=== PATIENT | male | born 1950 | race Caucasian/White ===

== ENCOUNTER 2017-03-01 18:08 | Inpatient (IN) | payer OTHER, MEDICAID ==
--- NOTE | 2017-03-01 18:45 | CPEKG ---
Heart Rate: 111 RR Interval: 541 P-R Interval: 164 QRSD Interval: 78 QT Interval: 324 QTC Interval: 441 P Egnar: 90 QRS Egnar: 79 EKG Severity - ABNORMAL ECG - EKG Impression: SINUS TACHYCARDIA EKG Impression: Artifact present Electronically Signed By: Frances Hernández 01-Mar-2017 21:30:42
--- NOTE | 2017-03-01 18:59 | EDPHY ---
H & P HPI/ROS: CHIEF COMPLAINT: Possible seizure HISTORY OF PRESENT ILLNESS: This patient is a 66 year old male with advanced Parkinson's disease arriving today via EMS following a reported possible seizure this evening shortly prior to arrival. EMS reports that an aide at [facility] saw the patient shaking for "maybe six seconds", and then he became unresponsive. The patient's blood glucose level on scene was 154. The patient's daughter at bedside states he is usually alert and conversive, and walks with a walker. She denies history of seizure or stroke. The patient is currently moaning and able to respond to some commands, and is beginning to move his extremities. Tachycardic 127. BP 166/119 . Further HPI unobtainable at this time. REVIEW OF SYSTEMS: Unable to assess due to patient presentation Past Medical/Surgical History: Pulmonary embolism, Parkinson's disease Social History: Lives at [facility]. Daughter and family at bedside. Smoking Status: Never smoked Physical Exam: General Appearance: Alert, nonverbal Eyes: Pupils equal and round, blinking left eye, no blinking with the right eye ENT, Mouth: Mucous membranes dry Neck: Normal inspection Respiratory: Lungs are clear to auscultation anteriorly Cardiovascular: Regular rate and rhythm Gastrointestinal: Abdomen is soft and nontender Neurological: alert, nonverbal, youth director both hands equally, not moving lower extremities to command Skin: Warm and dry Extremities: no swelling Psychiatric: unable to determine Constitutional: Initial Vital Signs Temperature (C) 36.7 C 03/01/17 18:34 Heart Rate 123 H 03/01/17 18:34 Respiratory Rate 22 H 03/01/17 18:34 Blood Pressure 178/100 H 03/01/17 18:34 O2 Sat (%) 94 03/01/17 18:34 O2 Delivery Mode Nasal Cannula O2 (L/minute) 2 Allergies/Adverse Reactions: No Known Allergies Allergy (Verified 03/01/17 20:08) Home Medications: Medication Instructions Recorded Carbidopa/Levodopa 25/100Mg 2 tab PO QID 12/24/14 [Sinemet 25/100 MG (*)] [place]-3 Fatty Acids [Fish Oil 1000 1,000 mg PO DAILY 12/24/14 mg (*)] Sennosides/Docusate Sodium 1 - 2 tab PO BID #0 tab 03/20/15 [Senokot-S] Acetaminophen [Tylenol 325mg (*)] 650 mg PO Q4 PRN 03/01/17 Bisacodyl [Dulcolax] 10 mg RC DAILY PRN 03/01/17 Fludrocortisone Acetate [Florinef] 0.1 mg PO BID 03/01/17 guaiFENesin/DEXTROMETHORPHAN 10 ml PO Q6 PRN 03/01/17 [Robitussin Dm Oral Liquid (*)] Docusate Sodium [Colace] 100 mg PO Q2D #30 capsule 03/03/17 Medical Decision Making - Diagnostics EKG Interpretation: EKG interpreted by me reveals sinus tachycardia rate 111, significant artifact present from neurostimulator, no ST or T segment changes. Impression: Abnormal EKG Imaging Results: Head CT 03/01/17 18:15 Impression: No acute intercranial hemorrhage, subdural hematoma, or evidence of cortical ischemia. Chest X-Ray 03/01/17 18:22 Impression: Clear lungs. No pneumonia or evidence of aspiration. Imaging: Discussed imaging studies w/ call center rn Radiologist ED Course/Re-evaluation: 18:10 Met EMS at bedside. Clinical presentation consistent with new onset seizure. Query CVA/ICH. He is able to business controller my fingers with both hands equally. He is not moving his legs. 18:15 Daughter at bedside. Patient usually is able to talk and he is able to walk using a walker. He has never had a seizure. She is unsure whether he is on a blood thinner or not. BP elevated, will obs for now. Plan to order CT, EKG labs including CBC, BMP, Troponin, coag. 19:00 I reassessed this patient. He is able to business controller with both hands. He is also moving both of his legs. According to the family, he has answered yes no questioning and has been humming a song. His mental status seems more appropriate at this point to them, though he is not back to his baseline. c/w postictal period. 19:30 Patient remains hypertensive and tachycardic. Labetalol 10 mg IV given. BP improved after IV Labetalol. Pt still not at baseline neuro status. Will admit for obs/further evaluation. No evidence for CVA/TIA. 19:36 consulted with hospitalist service. Dr. Castanon accepts admission for new onset seizure. Differential Diagnosis: Altered mental status including but not limited to hypoglycemia, infectious process, electrolyte abnormality, head injury and intoxicants. - Data Points Laboratory Results: Laboratory Results 03/01/17 19:19 03/01/17 18:21 Medications Given: Discontinued Medications Sodium Chloride (Ns) 1,000 mls @ 125 mls/hr IV CONT JENNY Stop: 03/02/17 04:44 Last Admin: 03/01/17 21:21 Dose: 1,000 mls Labetalol HCl (Labetalol Hcl) 10 mg IVP EDNOW ONE Stop: 03/01/17 19:35 Last Admin: 03/01/17 20:05 Dose: 10 mg Departure - Departure Disposition: [facility] Inpatient Acute Clinical Impression: New onset seizure, Parkinsons disease Condition: Fair Report Scribed for: Frances Hernández Report Scribed by: Theresa Aguirre Date of Report: 03/01/17 Time of Report: 19:01 Physician Review and Approval Statement: 03/01/17 19:02 Portions of this note were transcribed by a medical transcription supervisor. I personally performed a history, physical exam, medical decision making, and confirmed accuracy of information the transcribed note.
[2017-03-01 19:16] LABS: ADD DIFF? NO; ADD MORPH? NO; ADD SCAN? NO; ATYPICAL LYMPHOCYTE FLAG 0 (0-99); FRAGMENT RBC FLAG 0 (0-99); LEFT SHIFT FLG 0 (0-99); LIPEMIA HEMOLYSIS FLAG 0 (0-99); PLATELET CLUMPS FLAG 0 (0-99)
[2017-03-01 19:18] LABS: ANION GAP 24 mEq/L (8-16); CALCIUM 10.2 mg/dL (8.5-10.4); CARBON DIOXIDE 15 mEq/l (22-31); CHLORIDE 107 mEq/L (97-110); CREATININE 0.8 mg/dL (0.7-1.3); GLOMERULAR FILTRATION RATE > 60; GLUCOSE 147 mg/dL (70-100); POTASSIUM 3.8 mEq/L (3.5-5.2); SODIUM 146 mEq/L (134-144)
[2017-03-01 19:19] LABS: INR 1.07 (0.83-1.16); PROTIME(PATIENT) 13.8 SEC (12.0-15.0)
[2017-03-01 19:30] LABS: TROPONIN I 0.013 ng/mL (0-0.034)
[2017-03-01] MEDS ORDERED: LABETALOL HCL 50 MG/10 ML SYR IVP ONE (19:34)
[2017-03-01 19:46] LABS: % IMMATURE GRANULYOCYTES 1.6 % (0.0-1.1); ABSOLUTE IMMATURE GRANULOCYTES 0.24 10^3/uL (0.00-0.10); ADD DIFF? NO; ADD MORPH? NO; ADD SCAN? NO; ATYPICAL LYMPHOCYTE FLAG 0 (0-99); FRAGMENT RBC FLAG 0 (0-99); HEMATOCRIT 47.1 % (40.0-51.0); HEMOGLOBIN 16.3 g/dL (13.7-17.5); LEFT SHIFT FLG 10 (0-99); LIPEMIA HEMOLYSIS FLAG 90 (0-99); MEAN CELL HEMOGLOBIN CONCENTR. 34.6 g/dL (32.4-36.7); MEAN CELL VOLUME 89.7 fL (81.5-99.8); MEAN PLATELET VOLUME 9.7 fL (8.7-11.7); PLATELET CLUMPS FLAG 0 (0-99); PLATELET COUNT 244 10^3/uL (150-400); RED BLOOD CELL COUNT 5.25 10^6/uL (4.40-6.38); RED CELL DISTRIBUTION WIDTH 12.5 % (11.5-15.2)
[2017-03-01] MEDS ORDERED: ACETAMINOPHEN 325 MG TAB PO PRN ×2 (20:31→20:34)
[2017-03-01] MEDS ORDERED: GUAIFENESIN/DM 10 ML UDCUP PO PRN (20:31)
[2017-03-01] MEDS ORDERED: BISACODYL 10 MG SUPP PR PRN (20:31)
[2017-03-01] MEDS ORDERED: ONDANSETRON 4 MG/2 ML VIAL IVP PRN (20:34)
[2017-03-01] MEDS ORDERED: ONDANSETRON DISINTEGRATING 4 MG TAB PO PRN (20:34)
[2017-03-01] MEDS ORDERED: NS 1,000 ML IV SCH (20:45)
[2017-03-01] MEDS: SENNOSIDES/DOCUSATE SODIUM TAB PO SCH (21:21)
[2017-03-01] MEDS: FLUDROCORTISONE ACETATE 0.1 MG TAB PO SCH (21:21)
[2017-03-01] MEDS: CARBIDOPA/LEVODOPA 25 MG/100 MG TAB PO SCH (21:21)
--- NOTE | 2017-03-01 21:41 | GHP ---
[f rep st] HISTORY AND PHYSICAL DATE OF ADMISSION: 03/01/2017 HISTORY OF PRESENT ILLNESS: The is a 66-year-old gentleman with a history of Parkinson's disease an d pulmonary embolism, no longer on anticoagulation, who presents to the hospital with what appears t o be seizure. It sounds like he lives at [facility], and he had witnessed tonic-colonic movements, and he was subsequently less arousable, less interactive than his baseline following the resolution of that. The pseudoseizure was not witnessed by any healthcare professionals at [facility]. His daughter is present at the bedside, and states normally he is able to follow commands, to be conversant, and move around. When I see him today, he is able to answer a few questions with yes or no, but he is pretty rigid. He is not really moving. He was recently started on donepezil. He has a deep brain stimulator that was placed in 2004. He d enies any pain around it. There is no warmth or redness around it. He does not have a history of s eizures. There is no history of trauma, although he does have falls. He has no evidence of trauma to his head. No fever, chills, cough, sputum, nausea, vomiting, diarrhea, urgency, frequency, dysur ia. REVIEW OF SYSTEMS: Complete 10-point review of systems conducted, negative except as noted in the H PI. PAST MEDICAL HISTORY: 1. Parkinson's diagnosed in early 1999 with deep brain stimulator, requires inpatient care. 2. History of pulmonary embolism August 2015. No longer on blood thinners, secondary to falls. 3. History of constipation. 4. Orthostatic hypotension, resolved with Florinef. 5. Constipation. ALLERGIES: No known drug allergies. MEDICATIONS: Tylenol, bisacodyl, carbidopa levodopa, donepezil, fludrocortisone, guaifenesin, dextr omethorphan, fish oil, and senna. SOCIAL HISTORY: Daughter present at the bedside. He is a . He lives in [facility]. FAMILY HISTORY: Daughter is healthy. PHYSICAL EXAM: VITAL SIGNS: Temp 36.7, blood pressure 178/100, now 159/107. He was initially tach ycardic at 120, now in the 90s, breathing 16 times a minute, 96% on 2 L. GENERAL: In no acute dist ress, thin. HEENT: Sclerae anicteric. Oropharynx clear. Mucous membranes are moist. NECK: Esse ntially supple. He is not able to move it on his own. When I move it, he does not wince in pain. HEART: S1, S2 without tachycardia. CHEST: His deep brain stimulator is clean dry and intact. The re is no fluctuance or erythema. The catheter has no fluctuance, or erythema over it. ABDOMEN: So ft, nontender, nondistended. LOWER EXTREMITIES: Without edema. Calves nontender. SKIN: Without rash. NEUROLOGIC: The patient is really not following commands for me, but per his daughter he was following them earlier, and is otherwise nonfocal. He does have a resting tremor consistent with P madeleinekinsjaylen's. LABS: White count 15.2, hematocrit 47, platelets are 244,000. Coags normal. Sodium 146, potassium 3.8, chloride 105, bicarb 15, BUN 17, creatinine 0.8, glucose 147, troponin 0.013. He has an eleva dolores anion gap of 24. Chest x-ray, interpreted by me, shows no acute cardiopulmonary disease. There is a deep brain stimu lator in place. EKG, interpreted by me, shows a lot of artifact, sinus tachycardia. No ST or T-wave changes. Noncontrast head CT shows no acute intracranial hemorrhage, subdural hematoma, or evidence of cortic al ischemia. Discussed the case with Dr. Aleja Hernández. ASSESSMENT/PLAN: This is a 66-year-old today with Parkinson's, here with new seizures. 1. Seizure. This appears to be a new seizure on the basis of his metabolic acidosis in the story maverick huertas. Certainly this could be a result of his Parkinson's, although typically it is not related. His deep brain stimulator appears to be intact. I am not sure if this can be interrogated. At th is point in time, I will hold on an antiepileptic drug, and order an EEG and a neurology consult for tomorrow. 2. Question meningitis. I do not believe this patient has meningitis. He has no white count, no f ever. His neck does not appear stiff. He does not appear toxic, so we will hold on lumbar puncture for now. 3. History of pulmonary embolism. It is mild. We will follow. 4. Hyponatremia. Again, mild, will follow. 5. Anion gap metabolic acidosis secondary to seizure activity. 6. Prophylaxis. Pharmacologic prophylaxis indicated. Start low-molecular heparin at 40. /[id number]/MODL
[2017-03-02 05:22] LABS: % IMMATURE GRANULYOCYTES 0.5 % (0.0-1.1); ABSOLUTE IMMATURE GRANULOCYTES 0.06 10^3/uL (0.00-0.10); ADD DIFF? NO; ADD MORPH? NO; ADD SCAN? NO; ATYPICAL LYMPHOCYTE FLAG 0 (0-99); FRAGMENT RBC FLAG 0 (0-99); HEMATOCRIT 44.6 % (40.0-51.0); HEMOGLOBIN 15.2 g/dL (13.7-17.5); LEFT SHIFT FLG 0 (0-99); LIPEMIA HEMOLYSIS FLAG 90 (0-99); MEAN CELL HEMOGLOBIN 30.9 pg (27.9-34.1); MEAN CELL HEMOGLOBIN CONCENTR. 34.1 g/dL (32.4-36.7); MEAN CELL VOLUME 90.7 fL (81.5-99.8); PLATELET CLUMPS FLAG 0 (0-99); PLATELET COUNT 213 10^3/uL (150-400); RED BLOOD CELL COUNT 4.92 10^6/uL (4.40-6.38); RED CELL DISTRIBUTION WIDTH 12.7 % (11.5-15.2)
[2017-03-02 05:44] LABS: ANION GAP 13 mEq/L (8-16); CALCIUM 9.7 mg/dL (8.5-10.4); CARBON DIOXIDE 22 mEq/l (22-31); CHLORIDE 109 mEq/L (97-110); CREATININE 0.8 mg/dL (0.7-1.3); GLOMERULAR FILTRATION RATE > 60; GLUCOSE 119 mg/dL (70-100); POTASSIUM 3.8 mEq/L (3.5-5.2); SODIUM 144 mEq/L (134-144)
[2017-03-02] MEDS: CARBIDOPA/LEVODOPA 25 MG/100 MG TAB PO SCH ×4 (07:21→21:28)
[2017-03-02] MEDS: ENOXAPARIN 40 MG/0.4 ML SYR SC SCH (09:02)
[2017-03-02] MEDS: OMEGA-3 FATTY ACIDS 1,000 MG CAP PO SCH (09:02)
[2017-03-02] MEDS: DONEPEZIL HCL 5 MG TAB PO SCH (09:02)
[2017-03-02] MEDS: FLUDROCORTISONE ACETATE 0.1 MG TAB PO SCH ×2 (09:02→21:28)
[2017-03-02] MEDS: SENNOSIDES/DOCUSATE SODIUM TAB PO SCH ×2 (10:55→21:28)
--- NOTE | 2017-03-02 13:13 | HOSPPROG ---
Hospitalist Progress Note Assessment/Plan: 66y male with abnormal behavior. This is my first encounter, chart reviewed. #Possible SZ await neurology eval #Hx Parkinsons neuro consult brain stimulator #Hx constipation cont therapy check KUB #Hypernatremia resolved #AGMA resolved #Hx of PE no signs of concern #Dispo likely 1-2 days return home await neurology consult Subjective: Feeling better. Still feeling tired. Objective: Vital Signs Temp Pulse Resp BP Pulse Ox 36.7 C 71 16 138/92 H 92 03/02/17 11:35 03/02/17 11:35 03/02/17 11:35 03/02/17 11:35 03/02/17 11:35 Laboratory Results 03/02/17 04:10 03/02/17 04:10 03/01/17 03/02/17 03/03/17 05:59 05:59 05:59 Output Total 350 Balance -350 PT 13.8 SEC (12.0-15.0) 03/01/17 18:21 INR 1.07 (0.83-1.16) 03/01/17 18:21 - Physical Exam Constitutional: not in pain, chronically ill appearing, uncomfortable Eyes: PERRL, anicteric sclera, EOMI Ears, Nose, Mouth, Throat: moist mucous membranes, hearing normal, ears appear normal Cardiovascular: regular rate and rhythym, No JVD, No edema Respiratory: no respiratory distress, no rales or rhonchi, No reduced air movement Gastrointestinal: normoactive bowel sounds, No tenderness, No ascites Skin: warm, normal color, No erythema Musculoskeletal: pain with ROM, muscular tenderness, generalized weakness Neurologic: AAOx3 Psychiatric: interacting appropriately, not anxious, not encephalopathic, poor insight ICD10 Worksheet Patient Problems: Problems Problem Status Onset Gait instability Acute Pulmonary embolism Acute Impaction of colon Acute
--- NOTE | 2017-03-02 13:54 | PDCONSULT ---
[employer] Solution [employer] Note: HOSPITAL NEUROLOGY CONSULT REQUESTING: Miguel Angel Castanon MD REASON: seizure HPI: This is a 66 year old man with a history of advanced idiopathic Parkinson disease with bilateral DBS implants who presented to our facility yesterday with a witnessed convulsion. He resides at [facility]. Reports indicate the patient had a witnessed convulsion lasting about 6 seconds with some post-ictal confusion. He has not been ill recently, though, complained of some vague abdominal pain earlier. Patient has no recollection of the events. His ED evaluation indicated laboratory epiphenomenon of seizure , including leukocytosis and metabolic acidosis which are resolving without intervention. With regards to epilepsy risk factors, he has intracranial instrumentation in the form of DBS implants, but has no history of TBI, TESTING PROJECTS ADMINISTRATOR infection, collagen vascular disease. No prior history of seizures. Today he is feeling generally weak. No new focal deficits have been observed. He denies BARTON, feeling feverish or chilled. ROS: As per the HPI, otherwise a complete 12 point ROS was performed and is negative ALLERGIES AND MEDS: As recorded in the EMR - reviewed and reconciled PFSH: As per the intake H&P by Dr. Castanon from yesterday EXAM: VS reviewed in EMR GEN: thin elderly gentleman laying in NAD HEENT: NCAT, sclera anicteric, conjunctiva not injected, MMM, oropharynx clear, no scalp tenderness, no tongue laceration observed NECK: supple, nontender, no meningismus CV: RRR s1 s2 wo m/r/c/g. Carotid pulses 2+ wo bruit NEURO: MS: awake, reduced attention, oriented to self, place, but not date or events. He is markedly hypomimetic and bradyphrenic. Speech nondysarthric. No language disturbance. Follows commands. Attends to both sides. Episodic memory grossly impaired on casual conversation. Mood seems depressed. Adequate fund of knowledge. CN: pupils 4mm round and reactive. Intolerant of fundoscopy. VFF. Primary gaze centered. Square wave jerks present. Vertical gaze limited, but otherwise full horizontal ocular motility. Smooth pursuit with saccadic intrusions and motor impersistence. Facial sensation preserved. Face symmetric. Hearing grossly intact to finger rub. Palatoglossal movements intact. Shoulder shrug and head turn strong. MOTOR: no tremors/adventitial movements noted. Cogwheeling symmetrically about the wrists and elbows at 3+. Full power in the BUEs. Hip flexion weak at 4/5, but otherwise BLEs full power. SENSORY: intact to LT/PP throughout and symmetric. No extinction. COORD: no ataxia FN/HS. Abdifatah bradykinetic at -3. REFLEX: plantars down. No clonus. Absent ankle jerks. Other DTRS 2/4. GAIT: deferred to PT safety eval DATA REVIEW: Labs reviewed in EMR PERSONALLY INTERPRETED RESULTS AND DATA: CT head wo - global volume loss, bilateral DBS leads coursing through bilateral frontal demetrice holes and terminating in the STN region. Some hypoattenuation in the subcortical white matter, likely reflective of chronic microvascular ischemic change. Nothing acute. IMPRESSION AND RECOMMENDATIONS: // SEIZURE // PARKINSON DISEASE Patient with a witnessed convulsion and laboratory epiphenomenon supportive of this event. He does have a neurodegenerative condition, which increases his chance of seizure, as does his history of intracranial instrumentation (though to a much lesser degree with DBS). Toxic/metabolic/infectious workup with the hospitalist team has been negative to date. He is on medications that can lower seizure threshold and/or provoke seizures. These are namely donepezil, fludrocortisone and dextromethorphan. Would recommend discontinuing these medications. Donepezil's main goal of therapy is to stave off intermediate placement, and since he is already in a SNF, I don't think this therapy has much to offer anyway. Daughter indicates he has been having hallucinations and delusions, which can be treated with donepezil, but he will need an alternate therapy for this, like low dose quetiapine. Not sure of the indication for fludrocortisone, but if any orthostatic intolerance is evident, it may be potentiated by his L-dopa therapy. He certainly could be trialed on an alternate therapy, but this would be deferred to the outpatient setting. His symptoms do seem to be later stage (Roya-Yahr 4 at least) - his daughter confirms he is minimally ambulatory and has frequent falls. Would ensure Sinemet is being administered on an empty stomach, as protein will bind the medicine resulting in malabsorption. Would continue to exercise seizure safety precautions. If another seizure manifests, despite discontinuation of medication, would initiate levetiracetam 250mg BID. I would be happy to see him in my movement disorders clinic after discharge if desired. Overall, he needs close followup in the outpatient setting for further medication adjustment and optimization. No further recommendations.
[2017-03-02 23:19] VITALS: O2SAT 90
[2017-03-03] MEDS: CARBIDOPA/LEVODOPA 25 MG/100 MG TAB PO SCH ×2 (05:24→12:56)
[2017-03-03 07:22] VITALS: BP 117/78; PULSE 66; RESP 12; TEMP 97.9
[2017-03-03] MEDS: OMEGA-3 FATTY ACIDS 1,000 MG CAP PO SCH (10:25)
[2017-03-03] MEDS: FLUDROCORTISONE ACETATE 0.1 MG TAB PO SCH (10:26)
[2017-03-03] MEDS: SENNOSIDES/DOCUSATE SODIUM TAB PO SCH (10:28)
[2017-03-03] MEDS: ENOXAPARIN 40 MG/0.4 ML SYR SC SCH (10:31)
[2017-03-03] MEDS: DONEPEZIL HCL 5 MG TAB PO SCH ×2 (10:40→14:36)
--- NOTE | 2017-03-03 13:47 | PDIAF ---
- Diagnosis Diagnosis: Seizure Code Status: Full Code - Medication Management Discharge Medications: Medications to Continue on Transfer Carbidopa/Levodopa 25/100Mg [Sinemet 25/100 MG (*)] 2 tab PO QID 12/24/14 [Last Taken 08/17/15] [place]-3 Fatty Acids [Fish Oil 1000 mg (*)] 1,000 mg PO DAILY 12/24/14 [Last Taken 08/17/15] Sennosides/Docusate Sodium [Senokot-S] 1 - 2 tab PO BID #0 tab 03/20/15 [Last Taken 08/17/15] Acetaminophen [Tylenol 325mg (*)] 650 mg PO Q4 PRN 03/01/17 [Last Taken Unknown] Bisacodyl [Dulcolax] 10 mg RC DAILY PRN 03/01/17 [Last Taken Unknown] Fludrocortisone Acetate [Florinef] 0.1 mg PO BID 03/01/17 [Last Taken Unknown] guaiFENesin/DEXTROMETHORPHAN [Robitussin Dm Oral Liquid (*)] 10 ml PO Q6 PRN 09/17 [Last Taken Unknown] Docusate Sodium [Colace] 100 mg PO Q2D #30 capsule 03/03/17 [Last Taken Unknown] Discharge Medications: Refer to the Discharge Home Medication list for PRN reason. PICC Care - Routine: N/A - Orders Services needed: Registered Nurse, Physical Therapy, Occupational Therapy - Follow Up Care Current Providers and Referrals: Patient,NotPresent [Unknown] - As per Instructions Dung Castro DO [Doctor of Osteopathy] -
--- NOTE | 2017-03-03 19:04 | GDS ---
[f rep st] DISCHARGE SUMMARY DISCHARGE DIAGNOSES: 1. Seizure. 2. History of Parkinson disease with brain stimulator. 3. History of constipation. 4. Hyponatremia. 5. Anion gap metabolic acidosis. 6. Altered mentation. 7. Urinary retention. CONSULTATIONS: Dung Castro DO of Neurology. PHYSICAL EXAM: GENERAL: The patient is alert. VITAL SIGNS: Afebrile at 36.6, pulse is 66, respir atory rate 12, blood pressure is 117/77. He is saturating 90% on room air. HOSPITAL COURSE: The patient is a 66-year-old male, who resides at [facility] to the [facility] room with witnessed abnormal activity. He was evaluated and diagnosed with: 1. Probable seizure. During this hospitalization, he received a consultation from Neurology, Dr. Morenita ennis. He recommended the patient's Aricept be discontinued which has seizure threshold lowering c apability. I have discontinued this medication after discussing it with the patient's daughter. It is recommended that he be monitored for further seizure activity and if this occurs he will be init iated on antiseizure medications in the future. He has had no further seizure activity during this hospitalization. 2. History of Parkinson disease. The patient does have a brain stimulator in place. He is followe d at in the outpatient setting. Noted Dr. Castro is willing to follow the patient in [facility] with further recommendations to be made. The patient does appear to be at his [facility] with regard to this condition. 3. Urinary retention. The patient will have a Ospina catheter placed and a voiding trial will be pe rformed at [facility]. 4. Constipation. This is a chronic condition. The patient has had multiple bowel movements, durin g this hospitalization. An abdominal x-ray does not show any constipation or obstipation. 5. Hyponatremia. This has resolved with fluids. 6. Anion gap metabolic acidosis. This is secondary to the patient's seizure activity and has resol russell. 7. Disposition. The patient will be discharged to return to [facility] where he normally resides. I have reviewed his plan of care with his daughter who is in agreement with this plan. There are n o pending studies. Followup will be with Dr. Castro of Neurology as well as the patient's primary care physician, and outpatient care providers. DISCHARGE MEDICATIONS: Please refer to EMR form. I have discontinued the patient's Aricept and hav e not adjusted any of his other previously prescribed home medications to the best of my knowledge. I spent greater than 35 minutes in the care, coordination, and management of the patient's dispositi on. /[id number]/MODL
== END 2017-03-03 15:51 | DRG 101 ==
LOC: EDUNIT# → F3N 20:58
PROVIDERS: ADMIT Internal Medicine; ATTEND Internal Medicine
DX: G40.409 Other generalized epilepsy and epileptic syndromes, not intractable, without status epilepticus (principal); E87.1 Hypo-osmolality and hyponatremia; E87.2 Acidosis; G20 Parkinson's disease; R33.9 Retention of urine, unspecified; K59.00 Constipation, unspecified; Z86.711 Personal history of pulmonary embolism
CPT/HCPCS: 82947-QW; 96374; 97166-GO; G8987-GO-CL; G8988-GO-CJ; J1650

== ENCOUNTER 2017-09-01 05:30 | Inpatient (IN) | payer OTHER, MEDICAID ==
--- NOTE | 2017-09-01 05:42 | EDPHY ---
H & P Stated Complaint: per ems unwitnessed fall yest, mentation altered from normal, uti sx as wel - Personal History Tetanus Vaccine Date: <10yrs - Medical/Surgical History Hx Asthma: No Hx Chronic Respiratory Disease: No Hx Diabetes: No Hx Cardiac Disease: No Hx Renal Disease: No Hx Cirrhosis: No Hx Alcoholism: No Hx HIV/AIDS: No Hx Splenectomy or Spleen Trauma: No Other PMH: pmh- parkinsons, multiple falls, C-spine disk herniation and canal stenosis, psh- DBS, deep brain stimulator, hip surgery, PE,bph, hypotension - Social History Smoking Status: Never smoked <Troy Fiore - Last Filed: 09/01/17 06:50> <Artemio Conte - Last Filed: 09/01/17 08:07> HPI/ROS: Chief Complaint: Fall, back, pelvis and abdominal pain HPI: 66-year-old male with a history of Parkinson's disease coming from [facility] complaining of pain in his abdomen back and left hip. Patient had a mechanical fall yesterday afternoon which was unwitnessed. He states that he fell forward striking his abdomen but also struck his back against a vine in the facility. Patient states he has been having worsening pain since that time. He did not hit his head. He did not have a loss of conscious. Denies any neck pain or chest pain. No fevers or chills. He has had some urinary frequency. Patient is normally an alert and oriented x2. He is providing full history from at this time. ROS: 10 point Review of Systems is negative except as noted in the HPI. PMH: Parkinson's disease Social History: No smoking, no alcohol, no recreational drug use Family History: non-contributory Physical Exam: Gen: Awake, Alert, Airway Intact HEENT: Head: Atraumatic Eyes: PERRLA, EOMI Nose: No epistaxis Mouth: Normal dentition, Airway patent Face: No deformity Neck: non-tender, no stepoff, Full ROM without pain Chest: non-tender, lungs CTA Heart: normal heart tones Abd: Patient has diffuse abdominal tenderness with guarding Pelvis: Mild diffuse tenderness, stable to AP and Lateral compression Back: atraumatic, no midline tenderness Ext: Mild left anterior hip tenderness. He has full range of motion of bilateral upper lower extremities without discomfort. Skin: no rash Neuro: CN II-XII intact, Strength 5/5 in all extremities, sensation intact in all extremities (Troy Fiore) Constitutional: Initial Vital Signs Temperature (C) 36.5 C 09/01/17 05:34 Heart Rate 86 09/01/17 05:34 Respiratory Rate 18 09/01/17 05:34 Blood Pressure 172/113 H 09/01/17 05:34 O2 Sat (%) 94 09/01/17 05:34 O2 Delivery Mode Room Air Allergies/Adverse Reactions: No Known Allergies Allergy (Verified 09/01/17 05:39) Home Medications: Medication Instructions Recorded Carbidopa/Levodopa 25/100Mg 2 tab PO QID 12/24/14 [Sinemet 25/100 MG (*)] [place]-3 Fatty Acids [Fish Oil 1000 1,000 mg PO DAILY 12/24/14 mg (*)] Sennosides/Docusate Sodium 1 - 2 tab PO BID #0 tab 03/20/15 [Senokot-S] Acetaminophen [Tylenol 325mg (*)] 650 mg PO Q4 PRN 03/01/17 Bisacodyl [Dulcolax] 10 mg RC DAILY PRN 03/01/17 Fludrocortisone Acetate [Florinef] 0.1 mg PO BID 03/01/17 guaiFENesin/DEXTROMETHORPHAN 10 ml PO Q6 PRN 03/01/17 [Robitussin Dm Oral Liquid (*)] Docusate Sodium [Colace] 100 mg PO Q2D #30 capsule 03/03/17 Flomax 09/01/17 Midodrine HCl 09/01/17 Medical Decision Making <Troy Fiore - Last Filed: 09/01/17 06:50> - Diagnostics Imaging: Discussed imaging studies w/ housecalls nurse Radiologist <Artemio Conte - Last Filed: 09/01/17 08:07> ED Course/Re-evaluation: 66-year-old male status post fall yesterday with diffuse abdominal pain pelvic pain. He is a rigid abdomen but I think this is likely secondary to his Parkinson's disease as he is currently is mild. He does have tenderness though. Given his complaints of his injuries in his fall he will be getting a CT scan of his abdomen and pelvis problem asking for lumbar spine recons as well. Will also check urinalysis and blood work. 0700 patient signed out to Dr. Conte pending results of CT scans and urinalysis. (Troy Fiore) 07:00 I assumed care of this patient from Dr. Fiore at shift change. Reviewed past medical records including admission 03/01/17 for seizure. 07:[address] English, radiologist. CT abdomen/pelvis negative for acute organ injuries. CT lumbar spine shows L2 compression fracture. 07:17 Assessed patient. Discussed imaging results. Due to the patient's limited mobility from Parkinson's disease, he and I agree that the best plan of care would be to admit him for further evaluation, pain management, and to establish physical therapy. Plan to consult with trauma surgeon and neurosurgeon addiction treatment counselor. 07:29 Spoke with hospitalist service. Dr. Jeter accepts admission for L2 compression fracture. 07:[address] Lange, trauma surgeon. 08:[address] Mcclendon, neurosurgeon. He will consult. (Artemio Conte) Other Provider: I received signout on this patient from Dr. Fiore, pending CT. CT shows no solid organ injury, but a new L2 compression fracture is present. Patient is not an MRI candidate secondary to brain stimulator in place. I consulted Dr. Pedersen from trauma surgery but patient not an activation so not required to be seen. Given baseline severe Parkinsons' and difficulty with ADLs, I think patient would benefit from PT eval and NSG eval here in the hospital. I consulted Dr. Mcclendon from NS. Patient admitted to Dr. Jeter from hospitalist service. (Artemio Conte) - Data Points Laboratory Results: Laboratory Results 09/01/17 05:20 09/01/17 05:20 09/01/17 09/01/17 09/01/17 06:37 05:20 05:20 WBC 10.24 10^3/uL H 10^3/uL (3.80-9.50) RBC 4.74 10^6/uL 10^6/uL (4.40-6.38) Hgb 14.6 g/dL g/dL (13.7-17.5) Hct 41.9 % % (40.0-51.0) MCV 88.4 fL fL (81.5-99.8) MCH 30.8 pg pg (27.9-34.1) MCHC 34.8 g/dL g/dL (32.4-36.7) RDW 12.6 % % (11.5-15.2) Plt Count 232 10^3/uL 10^3/uL (150-400) MPV 9.3 fL fL (8.7-11.7) Neut % (Auto) 81.5 % H % (39.3-74.2) Lymph % (Auto) 8.5 % L % (15.0-45.0) Mellette % (Auto) 8.1 % % (4.5-13.0) Eos % (Auto) 0.9 % % (0.6-7.6) Baso % (Auto) 0.4 % % (0.3-1.7) Nucleat RBC Rel Count 0.0 % % (0.0-0.2) Absolute Neuts (auto) 8.35 10^3/uL H 10^3/uL (1.70-6.50) Absolute Lymphs (auto) 0.87 10^3/uL L 10^3/uL (1.00-3.00) Absolute Monos (auto) 0.83 10^3/uL H 10^3/uL (0.30-0.80) Absolute Eos (auto) 0.09 10^3/uL 10^3/uL (0.03-0.40) Absolute Basos (auto) 0.04 10^3/uL 10^3/uL (0.02-0.10) Absolute Nucleated RBC 0.00 10^3/uL 10^3/uL (0-0.01) Immature Gran % 0.6 % % (0.0-1.1) Immature Gran # 0.06 10^3/uL 10^3/uL (0.00-0.10) Sodium 142 mEq/L mEq/L (134-144) Potassium 4.0 mEq/L mEq/L (3.5-5.2) Chloride 103 mEq/L mEq/L (97-110) Carbon Dioxide 28 mEq/l mEq/l (22-31) Anion Gap 11 mEq/L mEq/L (8-16) BUN 15 mg/dL mg/dL (7-23) Creatinine 0.7 mg/dL mg/dL (0.7-1.3) Estimated GFR > 60 Glucose 108 mg/dL H mg/dL (70-100) Calcium 9.6 mg/dL mg/dL (8.5-10.4) Urine Color YELLOW Urine Appearance HAZY Urine pH 7.0 (5.0-7.5) Ur Specific Cade 1.009 (1.002-1.030) Urine Protein NEGATIVE (NEGATIVE) Urine Ketones NEGATIVE (NEGATIVE) Urine Blood 1+ H (NEGATIVE) Urine Nitrate NEGATIVE (NEGATIVE) Urine Bilirubin NEGATIVE (NEGATIVE) Urine Urobilinogen NEGATIVE EU EU (0.2-1.0) Ur Leukocyte Esterase NEGATIVE (NEGATIVE) Urine RBC 3-5 /hpf H /hpf (0-3) Urine WBC 1-3 /hpf /hpf (0-3) Ur Epithelial Cells NONE SEEN /lpf /lpf (NONE-1+) Urine Mucus TRACE /lpf /lpf (NONE-1+) Urine Glucose NEGATIVE (NEGATIVE) Departure <Troy Fiore - Last Filed: 09/01/17 06:50> <Artemio Conte - Last Filed: 09/01/17 08:07> - Departure Disposition: [facility] Inpatient Acute Clinical Impression: Parkinsons disease Compression fracture of L2 Qualifiers: Encounter type: initial encounter Fracture type: closed Qualified Code(s): S32.020A - Wedge compression fracture of second lumbar vertebra, initial encounter for closed fracture Condition: Fair <Troy Fiore - Last Filed: 09/01/17 06:50> Report Scribed for: Artemio Conte Report Scribed by: Theresa Aguirre Date of Report: 09/01/17 Time of Report: 07:22 <Artemio Conte - Last Filed: 09/01/17 08:07> Physician Review and Approval Statement: 09/01/17 07:22 Portions of this note were transcribed by an ED scribe. I personally performed the history, physical exam, and medical decision making; and confirm the accuracy of the information in the transcribed note. (Artemio Conte)
[2017-09-01 06:11] LABS: PLATELET COUNT 232 10^3/uL (150-400)
[2017-09-01] MEDS ORDERED: IOPAMIDOL (ISOVUE-300) 100 ML BTL ONE (06:21)
[2017-09-01] MEDS ORDERED: BISACODYL 10 MG SUPP PR PRN ×2 (07:35→10:42)
[2017-09-01] MEDS ORDERED: ONDANSETRON 4 MG/2 ML VIAL IVP PRN (07:35)
[2017-09-01] MEDS ORDERED: MAGNESIUM HYDROXIDE 30 ML UDCUP PO PRN (07:35)
[2017-09-01] MEDS ORDERED: ACETAMINOPHEN 325 MG TAB PO PRN (07:35)
[2017-09-01] MEDS ORDERED: HYDROmorphONE/DILAUDID 1 MG/ML INJ IVP PRN (07:35)
[2017-09-01] MEDS ORDERED: POLYETHYLENE GLYCOL 3350 17 GM PKT PO PRN (07:35)
[2017-09-01] MEDS ORDERED: LACTULOSE 20 GM/30 ML UDCUP PO PRN (07:35)
[2017-09-01] MEDS ORDERED: SENNOSIDES/DOCUSATE SODIUM TAB PO SCH (09:00)
[2017-09-01] MEDS ORDERED: HYDROmorphone HCL/NS/PF 0.4 MG/2 ML SYR IVP PRN (09:40)
[2017-09-01] MEDS ORDERED: GUAIFENESIN/DM 10 ML UDCUP PO PRN (10:42)
[2017-09-01] MEDS ORDERED: levETIRAcetam 250 MG TAB PO PRN (10:42)
[2017-09-01] MEDS ORDERED: IBUPROFEN 200 MG TAB PO PRN (10:53)
[2017-09-01] MEDS ORDERED: NS 1,000 ML IV SCH (11:00)
[2017-09-01] MEDS: LIDOCAINE 5% 1 EA PATCH TD SCH (11:30)
--- NOTE | 2017-09-01 11:38 | GHP ---
[f rep st] HISTORY AND PHYSICAL DATE OF ADMISSION: 09/01/2017 CHIEF COMPLAINT: Low back pain. HISTORY OF PRESENT ILLNESS: The patient is a pleasant 66-year-old male with a history of Parkinson's , who has undergone deep brain stimulation placement in [place] and who currently resides at [facility]. Apparently, the patient suffered an unwitnessed fall yesterday at the rehab facility and develo ped acute low back pain. The patient also developed abdominal pain and left hip pain after the fall. He did not lose consciousness or hit his head. Currently, the patient is complaining of low back p ain. He states that he has had some tingling in his left lower extremity for the past year. He has undergone a CT of the lumbar spine, which demonstrates an acute L2 compression fracture without retro pulsion. The patient is denying leg pain or weakness. He states that he does not take pain medicati on, though is complaining of significant low back pain. REVIEW OF SYSTEMS: Negative other than what is mentioned in the HPI. PAST MEDICAL HISTORY: Parkinson disease. SOCIAL HISTORY: He does not smoke. He does not drink. He is currently at [facility]. PHYSICAL EXAMINATION: HEAD, EARS, NOSE, THROAT: Within normal limits, with the exception of notable deep brain stimulator lead bumps on the top of his head. EXTREMITIES: Within normal limits. ABDOM EN: Soft, nontender, nondistended. BACK: Low back pain, subjective pain reported. The patient hi l not allow for palpation of the lumbar spine secondary to pain. NEUROLOGICAL EXAMINATION: The patient is awake and oriented to himself. He still thinks it is 2016 and thinks it is August 27. His speech is clear. He follows commands with all 4 extremities. H e has equal and symmetric strength in the bilateral upper and lower extremities in all dermatomal dis tributions. He has subjective tingling in the left leg in a nondermatomal distribution in the thigh and lower leg. He has elevated reflexes at 3+/4 in bilateral biceps and brachioradialis and the left patellar tendon. 1/4 in the right patellar tendon with no clonus and no Berry's. IMAGING STUDIES: CT of the abdomen and pelvis demonstrates a moderate L2 acute compression fracture; bibasilar atelectasis, left greater than right; old hip and rib fractures that are healed; moderate thickening of the bladder. CT of the lumbar spine demonstrates moderate acute L2 compression fracture. There is no evidence of bony retropulsion. There is mild to moderate multilevel lumbar degenerative disease and facet arthro radha and possible evidence of an old moderate L5 compression fracture. No severe central canal sten osis is noted. IMPRESSION: This is a 66-year-old male with a mechanical fall at his rehab facility yesterday with a cute low back pain, likely related to his acute moderate L2 compression fracture. He remains neurolo gically intact with ongoing back pain. The patient refused to take pain medications. PLAN: All the above issues were discussed with the patient in detail today as well as with Dr. Mcclendon . At this time, the patient will be fitted with a Hernandez brace. Upon fitting of the [place] brace, t he patient will undergo standing AP and lateral x-rays of lumbar spine to ensure no further progressi on of the fracture. He is to remain in bed until his Hernandez brace is fitted, with spinal precautions . Recommend q.4 hour neuro checks and to contact Neurosurgery with any new numbness, tingling, weakn ess, or bowel or bladder changes. /[id number]/MODL
--- NOTE | 2017-09-01 11:38 | GHP ---
[f rep st] HISTORY AND PHYSICAL CHIEF COMPLAINT: Back pain with associated abdominal pain. HISTORY OF PRESENT ILLNESS: The patient is a 66-year-old male with a history of Parkinson disease, gait instability, and history of orthostatic hypotension, who was admitted from [facility] complaining of pain to his abdominal area and bilateral hip area. He had a mechanical fall yesterday afternoon. Per the nursing staff at [facility], he was found in his room with his pants off. He was incontinent of urine and was trying to change his pants and fell down. He describes hitting his back against the wall and also hitting his abdomen. He did not have any loss of consciousness. He denies any chest pain, shortness of breath, neck pain, any type of preceding syncopal symptoms. He did have some urinary frequency at that time. He says his bowel movements are regular. He is alert and oriented to himself and to place. During my interview he is telling me his main complaint is his bilateral hip areas. He has no complaints of abdominal pain. PAST MEDICAL HISTORY: 1. Seizure. 2. Parkinson's with brain stimulator in place. 3. Constipation. 4. Hyponatremia. 5. Urinary retention. 6. Altered mental status. 7. History of pulmonary emboli diagnosed in 2015, no longer on anticoagulation due to frequent falls. 8. Orthostatic hypotension. 9. C2 fracture. 10. Hip fracture. SOCIAL HISTORY: He lives at [facility]. He is . He has 1 daughter. He does not smoke or use alcohol. HOME MEDICATIONS: Keppra 250 mg p.o. b.i.d. p.r.n., Sinemet 25/100 mg 2 tabs p.o. q.i.d., Dulcolax suppository daily p.r.n., Tylenol 650 mg q.4 hours p.r.n. , Florinef 0.1 mg p.o. b.i.d., Colace 100 mg p.o. q.2 days, senna 1 tab p.o. b.i.d., senna 1-2 tabs b.i.d. p.r.n., fish oil 1000 mg daily, Robitussin oral liquid 10 mL q.6 hours p.r.n., Flomax 0.4 mg p.o. q.h.s., midodrine 2.5 mg t.i.d. ALLERGIES: No known allergies. REVIEW OF SYSTEMS: A 10-point review of systems was performed and was negative other than pertinent positives in the HPI and past medical history. PHYSICAL EXAMINATION: GENERAL: The patient is a 66-year-old male who appears to be in very fair health and appears older than his stated years. VITAL SIGNS : Blood pressure is 171/106, heart rate is 90, respiratory rate is 16, O2 sats on room air 93%, temperature is 36.9 Celsius. EYES: Pupils are equal and reactive. ENT: His airway is very dry. NECK: Trachea is midline. CARDIOVASCULAR: He is in a regular rate and rhythm. No murmurs, rubs, or gallops noted. CHEST/LUNGS: Normal respiratory effort. ABDOMEN: Soft, nontender. SKIN: No rashes, ulcer. MUSCULOSKELETAL: Not evaluated. PSYCHIATRIC: He is alert. He is oriented to himself and his daughter. He appears to have poor insight and poor memory. LABORATORY DATA: Shows a white blood cell count of 10.24, hemoglobin 14.6, hematocrit 41.9, platelet count of 232. Chemistry: Sodium is 142, potassium 4 , chloride of 103, BUN of 15, creatinine 0.7, glucose of 108, calcium 9.6. Urinalysis shows 1+ in the blood and 3-5 red blood cells. RADIOLOGIC DATA: 1. CT of the abdomen shows atelectasis. He has old hip fractures and right rib fractures. It shows that he has moderate compression fracture at L2 that is new. He has moderate thickening bladder that is decompressed. Also noted that he is constipated. 2. Lumbar spine shows a new L2 fracture. ASSESSMENT/PLAN: 1. L2 fracture. He was seen and evaluated by neurosurgical services. The plan is to try a brace to see if this helps with the pain. In addition, I will order Lidoderm patches. Will avoid narcotics with his underlying Parkinson's. Scheduled Tylenol. 2. Weakness. Suspect that this is his advanced Parkinson's. Will ask Physical Therapy and Occupational Therapy to see. Per his daughter, he has been falling more frequently. 3. Orthostatic hypotension. Resumed his Florinef and midodrine. His blood pressure is elevated this morning. 4. Constipation. Will continue his scheduled routine as he has done at [facility]. 5. Parkinson's. Home medications have been resumed. 6. Deep venous thrombosis prophylaxis. We will hold at this time. This can be initiated tomorrow if he stays longer. For now, we will order CHAUNCEY ureña. 7. Code status: Full. 8. Length of stay: I suspect he will require less than a 2-midnight stay, which will make him observation status. /[id number]/MODL MTDD
[2017-09-01] MEDS: CARBIDOPA/LEVODOPA 25 MG/100 MG TAB PO SCH ×3 (12:06→22:35)
[2017-09-01] MEDS ORDERED: MIDODRINE HCL 2.5 MG PO SCH (16:00)
[2017-09-01] MEDS: MIDODRINE HCL 5 MG TAB PO SCH ×2 (17:01→22:36)
[2017-09-01] MEDS: ACETAMINOPHEN 500 MG TAB PO SCH ×2 (17:01→22:35)
[2017-09-01] MEDS: PATCH REMOVAL 1 EA PATCH TD SCH (22:00)
[2017-09-01] MEDS: TAMSULOSIN HCL 0.4 MG CAP PO SCH (22:36)
[2017-09-01] MEDS: SENNOSIDES/DOCUSATE SODIUM TAB PO SCH (22:36)
[2017-09-01] MEDS: FLUDROCORTISONE ACETATE 0.1 MG TAB PO SCH (22:36)
[2017-09-02 05:12] LABS: PLATELET COUNT 207 10^3/uL (150-400)
[2017-09-02] MEDS: CARBIDOPA/LEVODOPA 25 MG/100 MG TAB PO SCH ×6 (06:17→20:38)
--- NOTE | 2017-09-02 08:21 | NEUSURGPN ---
Assessment/Plan: A: 66 yo M s/p fall with T2 compression fx, Parkinson's dx. P: PT/OT Hernandez brace when OOB Pain management Standing xrays in brace pending Will d/w Dr Mcclendon if he thinks kyphoplasty would be an option for this pt Call NS with any questions/concerns Subjective: Pt resting at edge of bed with PT, c/o 9/10 back pain. States right side is weak at baseline. Objective: AAOx3 NAD VSS MAEx4 - diffusely weak RLE appx 3/5 to 4/5, 5/5 LLE Hernandez brace on Urinary Catheter in Place: No - Physician Discussed Patient with : [facility] Physical Exam - Vitals, I&O, Labs I and O 09/01/17 09/02/17 09/03/17 05:59 05:59 05:59 Intake Total 1600 Output Total 200 Balance 1400 Weight 70.2 kg Intake: Oral (ml) 750 IV Infused (ml) 850 Ns 1,000 ml @ 75 mls/hr 850 IV CONT JENNY Rx#: [id number] Output: Urine (ml) 200 Incontinence 200 Other: Number of Voids Incontinence 1 Vital Signs Temp Pulse Resp BP Pulse Ox 36.5 C 72 15 121/78 H 93 09/02/17 07:36 09/02/17 07:36 09/02/17 07:36 09/02/17 07:36 09/02/17 07:36 Laboratory Results 09/02/17 04:50 09/02/17 04:50 ICD10 Worksheet Patient Problems: Problems Problem Status Onset Compression fracture of L2 Acute Parkinsons disease Acute Gait instability Acute Impaction of colon Acute New onset seizure Acute Pulmonary embolism Acute
[2017-09-02] MEDS: OMEGA-3 FATTY ACIDS 1,000 MG CAP PO SCH (08:51)
[2017-09-02] MEDS: ACETAMINOPHEN 500 MG TAB PO SCH ×3 (08:52→20:38)
[2017-09-02] MEDS: MIDODRINE HCL 5 MG TAB PO SCH ×3 (08:52→20:38)
[2017-09-02] MEDS: FLUDROCORTISONE ACETATE 0.1 MG TAB PO SCH ×2 (08:52→20:38)
[2017-09-02] MEDS: SENNOSIDES/DOCUSATE SODIUM TAB PO SCH ×2 (08:59→21:14)
[2017-09-02] MEDS: LIDOCAINE 5% 1 EA PATCH TD SCH (10:28)
--- NOTE | 2017-09-02 14:27 | ASMTCMCOM ---
CM Note CM Note Notes: Pt in from [facility] where he lives LT and he had an unwitnesssed fall. Pt to have brace and then possible kypho tomorrow. Pt to return to when medically stable. CM to follow. Date Signed: 09/02/2017 02:27 PM Electronically Signed By:SHERIN Galvez
--- NOTE | 2017-09-02 17:32 | SOAPPROG ---
SOAP Progress Note Assessment/Plan: 66 yo M s/p fall with T2 compression fracture, Parkinson's Disease 1. T2 frx, neurosurg assisting -recommend kyphoplasty, NPO/planned for AM -continue pt/ot as able -Hernandez brace when OOB 2. Parkinsons -continue home meds 3. Hx sz disorder -continue keppra 4. Orthostatic hypotension -continue home meds -BP was elev at admission, lower now DISPO- back to [facility] when OK with neurosurg and s/p procedure DVT prophy- mechanical FULL CODE- MOST form scanned into chart Subjective: Eating, says pain OK if not moving. No CP/SOB. Family not in room. Objective: Vital Signs Temp Pulse Resp BP Pulse Ox 97.8 F 8 L 15 88/56 L 93 09/02/17 15:11 09/02/17 15:11 09/02/17 15:11 09/02/17 15:11 09/02/17 15:11 Laboratory Results 09/02/17 04:50 09/02/17 04:50 09/01/17 09/02/17 09/03/17 11:59 11:59 11:59 Intake Total 1600 Output Total 200 Balance 1400 - Pending Discharge Pending Discharge Within 24 Hours: No Physical Exam - Physical Exam General Appearance: no apparent distress, thin Respiratory: normal breath sounds, No respiratory distress Cardiac/Chest: regular rate, rhythm, No edema Abdomen: normal bowel sounds, non-tender, soft Neuro/Psych: other (Parkinsonian) ICD10 Worksheet Patient Problems: Problems Problem Status Onset Compression fracture of L2 Acute Parkinsons disease Acute Gait instability Acute Impaction of colon Acute New onset seizure Acute Pulmonary embolism Acute
[2017-09-02] MEDS ORDERED: NS 1,000 ML IV ONE (19:26)
[2017-09-02] MEDS ORDERED: ceFAZolin 2 GM/SWFI 2 GM/20 ML SYR IVP ONE (19:26)
[2017-09-02] MEDS ORDERED: DEXAMETHASONE 10 MG/ML VIAL IVP ONE (19:26)
--- NOTE | 2017-09-02 21:04 | PDMN ---
Medical Necessity Medical necessity: Patient transitioned to inpatient status per physician note and CMS guidelines: LOS will be > 2 midnights for vertebroplasty for acute L2 compression fracture s/p fall and ongoing PT/OT postop.
[2017-09-02] MEDS: TAMSULOSIN HCL 0.4 MG CAP PO SCH (21:15)
[2017-09-02] MEDS: PATCH REMOVAL 1 EA PATCH TD SCH (21:15)
[2017-09-03 05:23] LABS: INR 1.14 (0.83-1.16); PROTIME(PATIENT) 14.8 SEC (12.0-15.0)
[2017-09-03] MEDS: CARBIDOPA/LEVODOPA 25 MG/100 MG TAB PO SCH ×4 (06:09→21:23)
[2017-09-03] MEDS: ACETAMINOPHEN 500 MG TAB PO SCH ×4 (08:17→21:24)
[2017-09-03] MEDS: MIDODRINE HCL 5 MG TAB PO SCH ×4 (08:20→21:25)
[2017-09-03] MEDS: FLUDROCORTISONE ACETATE 0.1 MG TAB PO SCH ×2 (08:20→21:24)
[2017-09-03] MEDS: SENNOSIDES/DOCUSATE SODIUM TAB PO SCH ×2 (08:21→21:24)
[2017-09-03] MEDS ORDERED: MEPERIDINE 25 MG/ML SYR IVP PRN (08:30)
[2017-09-03] MEDS ORDERED: NS 1,000 ML IV ONE (08:30)
[2017-09-03] MEDS ORDERED: MIDAZOLAM 2 MG/2 ML VIAL IVP PRN (08:30)
[2017-09-03] MEDS ORDERED: NALOXONE HCL 0.4 MG/ML INJ IVP PRN ×2 (08:30→12:40)
[2017-09-03] MEDS ORDERED: DEXAMETHASONE 10 MG/ML VIAL IVP ONE (08:30)
[2017-09-03] MEDS ORDERED: FLUMAZENIL 0.5 MG/5 ML MDV IVP PRN (08:30)
[2017-09-03] MEDS ORDERED: fentaNYL 100 MCG/2 ML INJ IVP PRN ×2 (08:30→12:40)
[2017-09-03] MEDS ORDERED: ceFAZolin 2 GM/SWFI 2 GM/20 ML SYR IVP ONE ×2 (08:30→10:45)
--- NOTE | 2017-09-03 08:37 | NEUSURGPN ---
Assessment/Plan: Assessment/Plan: A: 66 yo M s/p fall with T2 compression fx, Parkinson's dx. P: Neuro Stable with continued back pain. Denies pain in legs. PT/OT Hernandez brace when OOB Pain management Standing xrays in brace show stable fracture Plan for IR vertebroplasty later today- will check on patient after procedure as well Call NS with any questions/concerns Subjective: Pt resting in bed. Ready for procedure later today. Objective: AAOx3 NAD VSS MAEx4 - diffusely weak RLE appx 3/5 to 4/5(RLE weakness at baseline), 5/5 LLE - Physician Discussed Patient with : [facility] Physical Exam - Vitals, I&O, Labs I and O 09/02/17 09/03/17 09/04/17 05:59 05:59 05:59 Weight 71.2 kg Other: Number of Voids Incontinence 1 Number of Stools Incontinence 1 Vital Signs Temp Pulse Resp BP Pulse Ox 36.9 C 69 16 114/69 94 09/03/17 07:45 09/03/17 07:45 09/03/17 07:45 09/03/17 07:45 09/03/17 07:45 ICD10 Worksheet Patient Problems: Problems Problem Status Onset Compression fracture of L2 Acute Parkinsons disease Acute Gait instability Acute Impaction of colon Acute New onset seizure Acute Pulmonary embolism Acute
[2017-09-03] MEDS: LIDOCAINE 5% 1 EA PATCH TD SCH (09:00)
[2017-09-03] MEDS: OMEGA-3 FATTY ACIDS 1,000 MG CAP PO SCH (09:00)
[2017-09-03] MEDS ORDERED: DOCUSATE SODIUM 100 MG CAP PO SCH (09:00)
--- NOTE | 2017-09-03 09:09 | PDPROPOC ---
Sedation Plan of Care Sedation Plan of Care: vital signs stable, mental status noted, patient educated of risks, benefits, alternatives ASA Classification: ASA 3 Planned drugs: other (will need anesthesia.) Mallampati Score: Unable to assesss Mallampati Reference Image: Patient passed 3-3-2 rule?: No (Patient is barely able to open mouth. Weakness , Parkinson's.)
[2017-09-03] MEDS ORDERED: DEXMEDETOMIDINE/NS 4MCG/ML 50 ML BTL IV ONE (10:49)
[2017-09-03] MEDS ORDERED: PROPOFOL 200 MG/20 ML VIAL ONE ×2 (11:10→11:45)
[2017-09-03] MEDS ORDERED: SUGAMMADEX SODIUM 200 MG/2 ML VIAL IVP ONE (11:52)
--- NOTE | 2017-09-03 12:21 | PDRADPN ---
Radiology Procedure Note Date of Procedure: 09/03/17 Radiologist: Jhony Grace Anesthesiologist: Von Hernandez MD Anesthesia: GET(General Endotracheal) Pre-op Diagnosis: Insufficiency fracture of L2 Post-op Diagnosis: Same Indication: Debilitating pain despite Jewitt Brace Procedure: Vertebral augmentation kyphoplasty of L2 Finding(s): Good distribution of 6.5 ml cement. Inf/Abcess present in the surg proc area at time of surgery?: No EBL: Minimal Complications: 0
[2017-09-03] MEDS ORDERED: LABETALOL HCL 5 MG/ML 20 ML MDV IVP PRN (12:40)
--- NOTE | 2017-09-03 12:42 | POSTANESTH ---
Post Anesthetic Evaluation Cardiovascular Status: Normal, Stable Respiratory Status: Normal, Stable Level of Consciousness/Mental Status: Can Participate in Eval, Moderately Sleepy Pain Control: Adequate, Prn Tx Ordered Nausea/Vomiting Control: Adequate, Prn Tx Ordered Complications Possibly Related to Anesthesia: None Noted
--- NOTE | 2017-09-03 12:42 | PDANEPAE ---
ANE History of Present Illness HERE FOR KYPHO S/P FALL ANE Past Medical History - Cardiovascular History Hx Hypertension: No Hx Arrhythmias: No Hx Coronary Artery / Peripheral Vascular Disease: No Hx CHF / Valvular Disease: No Hx Palpitations: No - Pulmonary History Hx COPD: No Hx Asthma/Reactive Airway Disease: No Hx Recent Upper Respiratory Infection: No Hx Oxygen in Use at Home: No Hx Sleep Apnea: No Sleep Apnea Screening Result - Last Documented: Negative - Endocrine History Hx Diabetes: No Hypothyroid: No Hyperthyroid: No Obesity: no - Renal History Hx Renal Disorders: No - Liver History Hx Hepatic Disorders: No - Neurological & Psychiatric Hx Neurological / Psychiatric History Comment: PARKINSONS WITH DBS - Chronic Pain History Chronic Pain: No ANE Review of Systems Review of systems is: negative Review of Systems: - Exercise capacity Exercise capacity: <4 METS ANE Patient History - Allergies Allergies/Adverse Reactions: No Known Allergies Allergy (Verified 09/01/17 05:39) - Home Medications Home medications: home medication list seen and reviewed Home Medications: Carbidopa/Levodopa 25/100Mg [Sinemet 25/100 MG (*)] 2 tab PO QID 12/24/14 [Last Taken 08/17/15] [place]-3 Fatty Acids [Fish Oil 1000 mg (*)] 1,000 mg PO DAILY 12/24/14 [Last Taken 08/17/15] Acetaminophen [Tylenol 325mg (*)] 650 mg PO Q4 PRN 03/01/17 [Last Taken Unknown] Bisacodyl [Dulcolax] 10 mg RC DAILY PRN 03/01/17 [Last Taken Unknown] Fludrocortisone Acetate [Florinef] 0.1 mg PO BID 03/01/17 [Last Taken Unknown] guaiFENesin/DEXTROMETHORPHAN [Robitussin Dm Oral Liquid (*)] 10 ml PO Q6 PRN 09/17 [Last Taken Unknown] Docusate Sodium [Colace] 100 mg PO Q2D@09 09/01/17 [Last Taken Unknown] Midodrine HCl 2.5 mg PO TID 09/01/17 [Last Taken Unknown] Sennosides/Docusate Sodium [Senokot-S] 1 - 2 tab PO BID PRN 09/01/17 [Last Taken Unknown] Sennosides/Docusate Sodium [Senokot-S] 1 tab PO BID 09/01/17 [Last Taken Unknown ] Tamsulosin HCl [Flomax 0.4 MG (*)] 0.4 mg PO HS 09/01/17 [Last Taken Unknown] levETIRAcetam [Keppra 250 mg (*)] 250 mg PO BID PRN 09/01/17 [Last Taken Unknown ] - NPO status NPO Status: no food or drink >8 hours - Smoking Hx Smoking Status: Never smoked ANE Labs/Vital Signs - Labs Result Diagrams: 09/02/17 04:50 09/02/17 04:50 - Vital Signs Blood Pressure: 114/69 Heart Rate: 71 Respiratory Rate: 12 O2 Sat (%): 93 Height: 193.04 cm Weight: 71.2 kg ANE Physical Exam - Airway Neck exam: decreased ROM Mallampati Score: Class 2 Mouth exam: poor dentition - Pulmonary Pulmonary: no respiratory distress - Cardiovascular Cardiovascular: regular rate and rhythym - ASA Status ASA Status: III ANE Anesthesia Plan Anesthesia Plan: general endotracheal anesthesia Specialized Airway: video laryngoscope
[2017-09-03] MEDS ORDERED: BUPIVACAINE 0.5% 30 ML SDV ONE ×2 (13:10→13:11)
[2017-09-03] MEDS ORDERED: LABETALOL HCL 5 MG/ML 20 ML MDV ONE (13:25)
--- NOTE | 2017-09-03 14:34 | HOSPPROG ---
Hospitalist Progress Note Assessment/Plan: 66 yo M s/p fall with L2 compression fracture, Parkinson's Disease *L2 frx, neurosurgery assisting kyphoplasty today unclear as of yet if this has helped his pain, just back from procedure *Parkinson's home meds *orthostatic hypotension home meds having hypertension after procedure today, prn hydralazine *seizure disorder keppra *Plan: if able to ambulate better, hopefully can dc home in the morning. Subjective: Wilfred says he is not having pain, but says he hasn't been up yet. Objective: Vital Signs Temp Pulse Resp BP Pulse Ox 36.7 C 76 16 157/97 H 95 09/03/17 14:07 09/03/17 14:07 09/03/17 14:07 09/03/17 14:07 09/03/17 14:07 09/02/17 09/03/17 09/04/17 05:59 05:59 05:59 Intake Total 700 Output Total 175 Balance 525 PT 14.8 SEC (12.0-15.0) 09/03/17 04:56 INR 1.14 (0.83-1.16) 09/03/17 04:56 - Physical Exam Constitutional: chronically ill appearing Eyes: PERRL Ears, Nose, Mouth, Throat: dry mucous membranes Cardiovascular: regular rate and rhythym Respiratory: no respiratory distress Gastrointestinal: normoactive bowel sounds Skin: warm Psychiatric: interacting appropriately, poor memory ICD10 Worksheet Patient Problems: Problems Problem Status Onset Gait instability Acute Pulmonary embolism Acute Impaction of colon Acute New onset seizure Acute Parkinsons disease Acute Compression fracture of L2 Acute
[2017-09-03] MEDS ORDERED: hydrALAZINE 10 MG TAB PO PRN (15:19)
--- NOTE | 2017-09-03 17:33 | WOCRNPDOC ---
WOCRN Advanced Assessment Note - Skin Integrity Problem, Advanced Assess Medial Back Unknown Dressing Type: Allevyn Life Dressing Description: Clean/Dry, Intact Exudate Amount: Scant Exudate Characteristic(s): Serosanguinous Integumentary Issue Intervention: Visualized Under Dressing Wound Bed Color: [place] Wound Bed Constitution: Red/[place] - Non Granular Tissue Wound Edges: Epithelizing, Attached Site Measurement - Head-to-Toe Length X Width X Depth (cm): 3x2.5x0.1 (x3 wounds in very close proximity) Skin Integrity Problem Comment: Unknown etiology. Patient reports having wounds for approx 3 weeks. They appear to be healing and wound care has no concerns. Will sign off. Right Sacrum Dressing Type: Allevyn Life Site Measurement - Head-to-Toe Length X Width X Depth (cm): 1x1x0 (proximal), 2x2x0 distal Pressure Injury Stage: Stage 1 Skin Integrity Problem Comment: There is a healed wound at proximal right sacrum. There is a painful stage 1 pressure injury to right distal sacrum. Bilateral Heel Pressure Injury Dressing Type: Open to Air Site Measurement - Head-to-Toe Length X Width X Depth (cm): 4x4x0 Pressure Injury Stage: Stage 1 Skin Integrity Problem Comment: please float heels.
[2017-09-03] MEDS: TAMSULOSIN HCL 0.4 MG CAP PO SCH (21:24)
[2017-09-03] MEDS: PATCH REMOVAL 1 EA PATCH TD SCH (21:45)
[2017-09-04] MEDS: CARBIDOPA/LEVODOPA 25 MG/100 MG TAB PO SCH ×2 (06:01→12:06)
[2017-09-04] MEDS: MIDODRINE HCL 5 MG TAB PO SCH (07:28)
[2017-09-04] MEDS: ACETAMINOPHEN 500 MG TAB PO SCH (07:28)
[2017-09-04] MEDS: SENNOSIDES/DOCUSATE SODIUM TAB PO SCH (07:30)
[2017-09-04] MEDS: OMEGA-3 FATTY ACIDS 1,000 MG CAP PO SCH (07:30)
[2017-09-04] MEDS: FLUDROCORTISONE ACETATE 0.1 MG TAB PO SCH (07:31)
[2017-09-04] MEDS: LIDOCAINE 5% 1 EA PATCH TD SCH (07:33)
--- NOTE | 2017-09-04 09:50 | NEUSURGPN ---
Assessment/Plan: A: 66 yo M s/p fall with T2 compression fx, Parkinson's dx. P: Neuro stable, improved back pain. Denies pain in legs. PT/OT No longer needs to use alex brace Pain management Standing xrays show stable fracture S/p IR vertebroplasty - pain is improved D/w Dr Mcclendon. NS will plan to sign off and follow peripherally. Call NS with any questions/concerns Subjective: Pt resting at edge of bed, states pain is better this AM. Had worse pain yesterday afternoon but it is better this morning. Objective: AAOx3 NAD VSS MAEx4 Motor 5/5 BLE +LT Urinary Catheter in Place: No - Physician Discussed Patient with : [facility] Physical Exam - Vitals, I&O, Labs I and O 09/03/17 09/04/17 09/05/17 05:59 05:59 05:59 Intake Total 1750 Output Total 777 200 Balance 973 -200 Weight 71.2 kg 71.2 kg Intake: Oral (ml) 1050 IV Intake (ml) 700 Output: Urine (ml) 777 200 Incontinence 250 Urinal 527 200 Estimated Blood Loss (ml) 0 Other: Number of Voids Incontinence 1 1 Urinal 2 1 Number of Stools Incontinence 1 Vital Signs Temp Pulse Resp BP Pulse Ox 36.7 C 64 18 114/78 96 09/04/17 08:04 09/04/17 08:04 09/04/17 08:04 09/04/17 08:04 09/04/17 08:04 ICD10 Worksheet Patient Problems: Problems Problem Status Onset Compression fracture of L2 Acute Parkinsons disease Acute Gait instability Acute Impaction of colon Acute New onset seizure Acute Pulmonary embolism Acute
--- NOTE | 2017-09-04 10:04 | PDIAF ---
- Diagnosis Diagnosis: lumbar fx Code Status: Full Code - Medication Management Discharge Medications: Medications to Continue on Transfer Carbidopa/Levodopa 25/100Mg [Sinemet 25/100 MG (*)] 2 tab PO QID 12/24/14 [Last Taken 08/17/15] [place]-3 Fatty Acids [Fish Oil 1000 mg (*)] 1,000 mg PO DAILY 12/24/14 [Last Taken 08/17/15] Acetaminophen [Tylenol 325mg (*)] 650 mg PO Q4 PRN 03/01/17 [Last Taken Unknown] Bisacodyl [Dulcolax] 10 mg RC DAILY PRN 03/01/17 [Last Taken Unknown] Fludrocortisone Acetate [Florinef] 0.1 mg PO BID 03/01/17 [Last Taken Unknown] guaiFENesin/DEXTROMETHORPHAN [Robitussin Dm Oral Liquid (*)] 10 ml PO Q6 PRN 09/17 [Last Taken Unknown] Docusate Sodium [Colace] 100 mg PO Q2D@09 09/01/17 [Last Taken Unknown] Midodrine HCl 2.5 mg PO TID 09/01/17 [Last Taken Unknown] Sennosides/Docusate Sodium [Senokot-S] 1 - 2 tab PO BID PRN 09/01/17 [Last Taken Unknown] Sennosides/Docusate Sodium [Senokot-S] 1 tab PO BID 09/01/17 [Last Taken Unknown ] Tamsulosin HCl [Flomax 0.4 MG (*)] 0.4 mg PO HS 09/01/17 [Last Taken Unknown] levETIRAcetam [Keppra 250 mg (*)] 250 mg PO BID PRN 09/01/17 [Last Taken Unknown ] Lidocaine 5% [Lidoderm 5% Patch (*)] 1 ea TD DAILY patch 09/04/17 [Last Taken Unknown] Patch Removal 1 ea TD DAILY21 patch 09/04/17 [Last Taken Unknown] Polyethylene Glycol 3350 [Miralax 17 gm (*)] 17 gm PO DAILY PRN pkt 09/04/17 [ Last Taken Unknown] Sennosides/Docusate Sodium [Senokot-S] 1 tab PO BID tab 09/04/17 [Last Taken Unknown] Discharge Medications: Refer to the Discharge Home Medication list for PRN reason. PICC Care - Routine: N/A - Orders Services needed: Registered Nurse, Physical Therapy, Occupational Therapy Isolation Type: None - Follow Up Care Current Providers and Referrals: AMOS GÓMEZ [Other] - As per Instructions
[2017-09-04 11:45] VITALS: BP 123/83; PULSE 67; RESP 14; TEMP 97.4; O2SAT 95
--- NOTE | 2017-09-04 14:17 | ASMTCMCOM ---
CM Note CM Note Notes: Pt medically stable for d/c to [facility]. Orders sent in [employer]. WC van set up by Marco ROJAS) for 01:00p. Date Signed: 09/04/2017 02:17 PM Electronically Signed By:SHERIN Galvez
--- NOTE | 2017-09-04 14:18 | ASDISCHSUM ---
Discharge Information Plan Status:SNF Medically Cleared to Leave: Discharge Date:09/04/2017 01:22 PM D/C Disposition:Long Term Facility ADT D/C Disposition:Long Term Facility Projected Discharge Date:09/04/2017 11:00 AM Transportation at D/C:Wheelchair Van Discharge Delay Reason: Follow-Up Date:09/04/2017 11:00 AM Discharge Slot: Final Diagnosis: Placement Information Referral Type:*Group Home/SNF Referral ID:[id number] Provider Name:[facility] Address 1:[address] Address 2: City:[place] Selection Factors: State:[place] Patient Contact Information Contact Name:BIANKA Relationship:Daughter Address: Home Phone: City: [facility] Phone: [facility]/Zip Code: Email: Financial Information Financial Class:Medicare Advantage Plans Primary Plan Desc:[facility] [employer] Primary Plan Number:[id number] Secondary Plan Desc:[employer] Secondary Plan Number:[id number] Assessment Information [facility] CM Progress Note CM Note CM Note Notes: Pt in from [facility] where he lives LT and he had an unwitnesssed fall. Pt to have brace and then possible kypho tomorrow. Pt to return to when medically stable. CM to follow. Date Signed: 09/02/2017 02:27 PM Electronically Signed By:SHERIN Galvez [facility] CM Progress Note CM Note CM Note Notes: Pt medically stable for d/c to [facility]. Orders sent in [employer]. WC van set up by Marco Abad) for 01:00p. Date Signed: 09/04/2017 02:17 PM Electronically Signed By:SHERIN Galvez Intervention Information Intervention Type:*BANERJEE-Signed Date of Service:09/02/2017 11:33 AM Patient Type:Observation Staff Member:Rebekah Mitchell Hours: Discipline: Severity: Comment:
--- NOTE | 2017-09-04 15:13 | GDS ---
[f rep st] DISCHARGE SUMMARY DISCHARGE DIAGNOSES: 1. L2 compression fracture. 2. Parkinson disease. 3. Orthostatic hypotension. 4. History of seizure disorder. STUDIES AND PROCEDURES DONE: 1. Lumbar spine x-ray. 2. Kyphoplasty. CONSULTATIONS: 1. Neurosurgery. 2. Dr. Grace of Interventional Radiology. PHYSICAL EXAMINATION: GENERAL: The patient is alert. VITAL SIGNS: Afebrile at 36.3, pulse is 67, respiratory rate 14, blood pressure is 123/83, saturating 95% on room air. I have seen and evaluated the patient on the day of discharge. HOSPITAL COURSE: The patient is a 66-year-old male who presented to the emergency room after sufferi ng a fall. He was evaluated and diagnosed with: 1. L2 compression fracture. During this hospitalization, he received a kyphoplasty and consultation per Neurosurgery as well as Interventional Radiology. His pain is significantly improved and he is working with Physical Therapy, as well as Occupational Therapy. 2. History of Parkinson disease. His home medications have been continued during this hospital cour se with no adjustment needed. 3. Orthostatic hypotension. This will require monitoring in the outpatient setting and medications have been continued. 4. History of seizure disorder. The patient will continue his previously prescribed Keppra. DISPOSITION: The patient will be discharged to return to [facility] where he normally resides. He wi ll require continued physical therapy as well as occupational therapy. I have discussed the patient' s disposition with his nurse as well as the case management. There are no pending studies. DISCHARGE MEDICATIONS: Please refer to the EMR form. The patient's new medications include a Lidode rm patch as well as stool softeners. I have not adjusted any of the patient's previously prescribed home medications to the best of my knowledge. FOLLOWUP: Will be with his primary care physician as well as Neurosurgery as needed. I spent greater than 35 minutes in the care, coordination, and management of the patient's dispositio n. /[id number]/MODL
== END 2017-09-04 13:22 | DRG 517 ==
LOC: EDUNIT# → F3N 09:28 → OBSVTOIN 09-02 16:29
PROVIDERS: ADMIT Family Medicine; ATTEND Family Medicine
PROC: 0QU03JZ Supplement Lumbar Vertebra with Synthetic Substitute, Percutaneous Approach (ICD-10-PCS; principal; 2017-09-03 12:29)
PROC: 0QS03ZZ Reposition Lumbar Vertebra, Percutaneous Approach (ICD-10-PCS; principal; 2017-09-03 12:29)
DX: S32.020A Wedge compression fracture of second lumbar vertebra, initial encounter for closed fracture (principal); G20 Parkinson's disease; I95.1 Orthostatic hypotension; G40.909 Epilepsy, unspecified, not intractable, without status epilepticus; K59.00 Constipation, unspecified; W19.XXXA Unspecified fall, initial encounter; Y92.122 Bedroom in nursing home as the place of occurrence of the external cause
CPT/HCPCS: 92523-GN; 97112-GP; 97116-GP; 97163-GP; 97166-GO; 97530-GP; 97535-GO; G0378; G8978-GP-CM; G8979-GP-CK; G8987-GO-CK; G8988-GO-CJ; G9168-GN-CK; G9169-GN-CK; G9170-GN-CK; J0690; J1100; J2704; J3490; Q9967

== ENCOUNTER 2017-10-17 03:25 | Emergency (ER) | payer OTHER, MEDICAID ==
--- NOTE | 2017-10-17 03:31 | EDPHY ---
H & P Time Seen by Provider: 10/17/17 03:30 HPI/ROS: HPI CHIEF COMPLAINT: Unable to urinate HISTORY OF PRESENT ILLNESS: Patient very pleasant 66-year-old male who resides at [facility] and presents emergency room by EMS as he has been unable urinate and is having lower bladder pain. Unclear how long he has not urinated the nurse at [facility] was unsure. He presents emergency room hemodynamically stable vital signs in no acute distress he does complain of abdominal distention. On exam he has a distended abdomen and tender palpation over the bladder. Appears to be the bladder is distended. Will plan on bladder scanning. Denies any fever, vomiting chest pain or shortness of breath denies back pain. Past Medical History: History of seizures, L2 compression fracture, orthostatic hypertension, history of PE Past Surgical History: No recent surgery Social History: Denies drugs alcohol tobacco products. Resides at [facility]. Family History: Noncontributory ROS REVIEW OF SYSTEMS: A comprehensive 10 point review of systems is otherwise negative aside from elements mentioned in the history of present illness. Exam Constitutional appears elderly, frail but otherwise nontoxic, triage nursing summary reviewed, vital signs reviewed, awake/alert. Eyes normal conjunctivae and sclera, EOMI, PERRLA. HENT normal inspection, atraumatic, moist mucus membranes, no epistaxis, neck supple/ no meningismus, no raccoon eyes. Respiratory clear to auscultation bilaterally, normal breath sounds, no respiratory distress, no wheezing. Cardiovascular rate normal, regular rhythm, no murmur, no edema, distal pulses normal. Gastrointestinal mild tender palpation of the suprapubic region, distended bladder on palpation,, no rebound, no guarding, normal bowel sounds, no distension, no pulsatile mass. Genitourinary no CVA tenderness. Musculoskeletal no midline vertebral tenderness, full range of motion, no calf swelling, no tenderness of extremities, no meningismus, good pulses, neurovascularly intact. Skin pink, warm, & dry, no rash, skin atraumatic. Neurologic awake, alert and oriented x 3, AAOx3, moves all 4 extremities equally, motor intact, sensory intact, CN II-XII intact, normal cerebellar, normal vision, normal speech. Psychiatric normal mood/affect. Heme/Lymph/Immune no lymphadenopathy. Differential Diagnosis: Includes but is not limited to in a particular order urinary 2, urinary outflow obstruction, GI, cystitis Medical Decision Making: Plan for this patient bladder scan. If large amount urine bladder which I think will be will plan on Ospina catheter. Check UA. Re-evaluation: Bladder scan shows greater than 927 cc of retained urine in her. Will place Ospina catheter. 0526: Blood work reviewed is reassuring no high white count. He is afebrile no evidence of sepsis. His Ospina catheter drain over 900 cc of fluid. The Ospina catheter will stay in place he will be discharged back to his living facility within in place. Follow up with Urology on outpatient basis. No evidence infection on the UA. Of note he did have some transient hypotension here this responded well with IV fluids. He has no evidence sepsis. 0532: Patient's blood pressure improved 90s. We did touch base with group home they state that his blood pressure runs in the 90 systolic this is baseline for him. 0600: Patient blood pressure much improved. 127/78. Patient resting comfortably no acute distress or be transferred back to [facility]. Ospina in place follow up with Urology. He understands. This was relayed [facility] as well. Source: Patient, EMS Exam Limitations: Clinical condition, Physical impairment - Personal History Tetanus Vaccine Date: <10yrs - Medical/Surgical History Hx Asthma: No Hx Chronic Respiratory Disease: No Hx Diabetes: No Hx Cardiac Disease: No Hx Renal Disease: No Hx Cirrhosis: No Hx Alcoholism: No Hx HIV/AIDS: No Hx Splenectomy or Spleen Trauma: No Other PMH: pmh- parkinsons, multiple falls, C-spine disk herniation and canal stenosis, psh- DBS, deep brain stimulator, hip surgery, PE,bph, hypotension - Social History Smoking Status: Never smoked Constitutional: Initial Vital Signs Temperature (C) 36.8 C 10/17/17 03:28 Heart Rate 94 10/17/17 03:28 Respiratory Rate 16 10/17/17 03:28 Blood Pressure 116/84 H 10/17/17 03:28 O2 Sat (%) 94 10/17/17 03:28 O2 Delivery Mode Room Air Allergies/Adverse Reactions: No Known Allergies Allergy (Verified 10/17/17 03:43) Home Medications: Medication Instructions Recorded Carbidopa/Levodopa 25/100Mg 2 tab PO QID 12/24/14 [Sinemet 25/100 MG (*)] [place]-3 Fatty Acids [Fish Oil 1000 1,000 mg PO DAILY 12/24/15 mg (*)] Acetaminophen [Tylenol 325mg (*)] 650 mg PO Q4 PRN 03/01/17 Bisacodyl [Dulcolax] 10 mg RC DAILY PRN 03/01/17 Fludrocortisone Acetate [Florinef] 0.1 mg PO BID 03/01/17 guaiFENesin/DEXTROMETHORPHAN 10 ml PO Q6 PRN 03/01/17 [Robitussin Dm Oral Liquid (*)] Docusate Sodium [Colace] 100 mg PO Q2D@09 09/01/17 Midodrine HCl 2.5 mg PO TID 09/01/17 Sennosides/Docusate Sodium 1 - 2 tab PO BID PRN 09/01/17 [Senokot-S] Sennosides/Docusate Sodium 1 tab PO BID 09/01/17 [Senokot-S] Tamsulosin HCl [Flomax 0.4 MG (*)] 0.4 mg PO HS 09/01/17 levETIRAcetam [Keppra 250 mg (*)] 250 mg PO BID PRN 09/01/17 Lidocaine 5% [Lidoderm 5% Patch 1 ea TD DAILY patch 09/04/17 (*)] Patch Removal 1 ea TD DAILY21 patch 09/04/17 Polyethylene Glycol 3350 [Miralax 17 gm PO DAILY PRN pkt 09/04/17 17 gm (*)] Sennosides/Docusate Sodium 1 tab PO BID tab 09/04/17 [Senokot-S] Medical Decision Making - Data Points Laboratory Results: Laboratory Results 10/17/17 04:24 10/17/17 04:24 10/17/17 10/17/17 10/17/17 04:24 04:24 03:48 WBC 8.61 10^3/uL 10^3/uL (3.80-9.50) RBC 4.64 10^6/uL 10^6/uL (4.40-6.38) Hgb 14.0 g/dL g/dL (13.7-17.5) Hct 41.0 % % (40.0-51.0) MCV 88.4 fL fL (81.5-99.8) MCH 30.2 pg pg (27.9-34.1) MCHC 34.1 g/dL g/dL (32.4-36.7) RDW 13.2 % % (11.5-15.2) Plt Count 271 10^3/uL 10^3/uL (150-400) MPV 8.9 fL fL (8.7-11.7) Neut % (Auto) 80.5 % H % (39.3-74.2) Lymph % (Auto) 10.2 % L % (15.0-45.0) [place] % (Auto) 8.1 % % (4.5-13.0) Eos % (Auto) 0.6 % % (0.6-7.6) Baso % (Auto) 0.3 % % (0.3-1.7) Nucleat RBC Rel Count 0.0 % % (0.0-0.2) Absolute Neuts (auto) 6.92 10^3/uL H 10^3/uL (1.70-6.50) Absolute Lymphs (auto) 0.88 10^3/uL L 10^3/uL (1.00-3.00) Absolute Monos (auto) 0.70 10^3/uL 10^3/uL (0.30-0.80) Absolute Eos (auto) 0.05 10^3/uL 10^3/uL (0.03-0.40) Absolute Basos (auto) 0.03 10^3/uL 10^3/uL (0.02-0.10) Absolute Nucleated RBC 0.00 10^3/uL 10^3/uL (0-0.01) Immature Gran % 0.3 % % (0.0-1.1) Immature Gran # 0.03 10^3/uL 10^3/uL (0.00-0.10) Sodium 139 mEq/L mEq/L (135-145) Potassium 4.2 mEq/L mEq/L (3.5-5.2) Chloride 106 mEq/L mEq/L (97-110) Carbon Dioxide 25 mEq/l mEq/l (22-31) Anion Gap 8 mEq/L mEq/L (8-16) BUN 27 mg/dL H mg/dL (7-23) Creatinine 0.8 mg/dL mg/dL (0.7-1.3) Estimated GFR > 60 Glucose 111 mg/dL H mg/dL (70-100) Calcium 9.6 mg/dL mg/dL (8.5-10.4) Urine Color YELLOW Urine Appearance HAZY Urine pH 7.0 (5.0-7.5) Ur Specific [place] 1.014 (1.002-1.030) Urine Protein NEGATIVE (NEGATIVE) Urine Ketones NEGATIVE (NEGATIVE) Urine Blood 1+ H (NEGATIVE) Urine Nitrate NEGATIVE (NEGATIVE) Urine Bilirubin NEGATIVE (NEGATIVE) Urine Urobilinogen NEGATIVE EU EU (0.2-1.0) Ur Leukocyte Esterase NEGATIVE (NEGATIVE) Urine RBC 3-5 /hpf H /hpf (0-3) Urine WBC 1-3 /hpf /hpf (0-3) Ur Epithelial Cells Not Reported Amorphous Sediment PRESENT /hpf /hpf (NONE-1+) Hyaline Casts 1-5 /lpf /lpf (0-1) Urine Mucus TRACE /lpf /lpf (NONE-1+) Urine Glucose NEGATIVE (NEGATIVE) Medications Given: Discontinued Medications Sodium Chloride (Ns) 1,000 mls @ 0 mls/hr IV EDNOW ONE; Wide Open PRN Reason: Protocol Stop: 10/17/17 04:10 Last Admin: 10/17/17 04:23 Dose: 1,000 mls Lidocaine (Uroject Lidocaine 2% Jelly) 20 ml UR EDNOW ONE Stop: 10/17/17 03:44 Last Admin: 10/17/17 03:44 Dose: 20 ml Departure - Departure Disposition: Home, Routine, Self-Care Clinical Impression: Urinary outflow obstruction Condition: Good Instructions: Urinary Retention in Men (ED) Additional Instructions: 1. Stay well hydrated drink lots of fluids. 2. He will need to be followed up by Urology for your urinary outflow obstruction and Ospina removal. Recommend make an appointment next week. Referrals: Jimmie Curry MD [Medical Doctor] - As per Instructions
[2017-10-17] MEDS ORDERED: LIDOCAINE 2% JELLY 20 ML (UROJECT) ONE (03:32)
[2017-10-17] MEDS ORDERED: LIDOCAINE 2% JELLY 20 ML (UROJECT) UR ONE (03:43)
[2017-10-17 03:47] VITALS: RESP 16
[2017-10-17] MEDS ORDERED: NS 1,000 ML IV ONE (04:09)
[2017-10-17 04:33] LABS: PLATELET COUNT 271 10^3/uL (150-400)
[2017-10-17 05:27] VITALS: O2SAT 96
[2017-10-17 06:50] VITALS: BP 112/74; PULSE 81; TEMP 97.9
--- NOTE | 2017-10-17 12:08 | ASMTCMCOM ---
CM Note CM Note Notes: Pt 's daughter Lissette called stating that pt's psychiatrist is Dr. Painting [phone]. Lissette's number is [phone] she stated that they are estranged. Date Signed: 10/17/2017 12:07 PM Electronically Signed By:Dontae Montoya LCSW
--- NOTE | 2017-10-17 12:52 | ASMTCMCOM ---
CM Note CM Note Notes: DISREGARD PREVIOUS NOTE 10/17/17 Date Signed: 10/17/2017 12:51 PM Electronically Signed By:Dontae Montoya LCSW
== END 2017-10-17 06:50 | disposition home or self-care (01) ==
LOC: EDBD → EDUNIT#
PROC: 0T9B70Z Drainage of Bladder with Drainage Device, Via Natural or Artificial Opening (ICD-10-PCS; principal; 2017-10-17)
DX: N13.9 Obstructive and reflux uropathy, unspecified (principal); G20 Parkinson's disease; E86.9 Volume depletion, unspecified

== ENCOUNTER 2018-01-10 19:27 | Inpatient (IN) | payer OTHER, MEDICAID ==
[2018-01-10 19:59] LABS: PLATELET COUNT 216 10^3/uL (150-400)
[2018-01-10 20:49] LABS: INR 1.06 (0.83-1.16)
--- NOTE | 2018-01-10 20:57 | EDPHY ---
HPI/HX/ROS/PE/MDM Narrative: CHIEF COMPLAINT: Fever, low saturations, confusion HISTORY OF PRESENT ILLNESS: This is a 67-year-old male with a history of Parkinson's disease complicated by dementia, with a neurostimulator, who presents from his skilled nursing. Patient was found on his knees in his room earlier today. He was quite confused. Family was called. Daughter who is present reports that he has a significantly diminished mentation compared to normal. He was noted by the skilled nursing staff to have a O2 saturation of 72% on room air. No known history of head trauma or syncope; no known history of seizure. Patient does not take any blood thinners. He had an episode of having a seizure several years ago which was thought to be triggered by Aricept. About 6 weeks ago the patient did start a new medication to help with memory loss . There has been no history of fevers. No history of vomiting or diarrhea. ROS unavailable secondary to patient's clinical condition PAST MEDICAL HISTORY: Parkinson's disease, skilled nursing records indicate history of PE. SOCIAL HISTORY: Here with his daughter. Nonsmoker. Currently lives at [facility]. VITAL SIGNS Reviewed by me. GENERAL: Unresponsive to verbal stimuli, no respiratory distress noted, sitting with his eyes closed. HEENT: Atraumatic. Eyes: Pupils are 3 mm and reactive bilaterally, no icterus , no injection. Mouth: moist mucous membranes. No erythema or lesions. Neck: supple with no adenopathy. LUNGS: Difficult exam, minimal air movement throughout, no respiratory distress noted. CARDIAC: Regular rate and rhythm, no rubs, murmurs or gallops. ABDOMEN: Soft, nontender, nondistended, bowel sounds normal. BACK: No CVA tenderness. EXTREMITIES: Abrasions on bilateral knees. No edema. NEURO: Unable to assess, patient is nonverbal, does not open his eyes, does not follow commands. Does respond to painful stimuli. SKIN: Warm and dry, no rash. PSYCHIATRIC: Unable to assess ED Course: 67 year male presenting to the emergency department after being found confused and kneeling on the ground in his room. He was noted to have a temperature on arrival here of 38 degrees orally, is quite tachycardic. Evaluation for sepsis was begun. Patient has a normal lactic acid, white count of 10, unremarkable chemistries, urinalysis demonstrates 5-10 red cells per high -power field. Chest x-ray: No obvious infiltrate. Head CT: No acute findings Trial of room air while in the emergency department: 92%. Patient's course discussed with the hospitalist service. Dr. Emanuel Hong will admit. Blood cultures and urine cultures pending at this time. MDM: After the history was obtained and physical exam performed, the following differential for the patient's altered mental status was considered included but was not limited to infection, viral infection, hypoglycemia, electrolyte disturbances, intracranial hemorrhage, tumor, drug or alcohol intoxication, stroke, or TIA. - Data Points Imaging Results: CXR: Impression: 1. No active cardiopulmonary disease seen. 2. Hyperexpanded lungs suggestive of mild COPD. Dictated By: Wilfred English MD CT Head: Impression: 1. Mild age-related atrophy. 2. No hemorrhage, mass effect, or definite acute peripheral infarct. 3. Deep brain stimulator leads are in stable position. 4. Large amount of earwax within the external auditory canal bilaterally. 5. Nonspecific paranasal sinus disease. 6. Dental disease involving right second molar and right second premolar. If symptoms worsen, additional imaging may be necessary. Findings discussed with Pam Goins MD at 21:09 hour, 01/10/2018. Imaging: Discussed imaging studies w/ preschool teacher aide Radiologist, I viewed and interpreted images myself Laboratory Results: Laboratory Results 01/10/18 19:45 01/10/18 19:45 Medications Given: Carbidopa/Levodopa (Sinemet) 2 tab PO QID JENNY Stop: 07/10/18 15:59 Last Admin: 01/11/18 15:46 Dose: 2 tab Enoxaparin Sodium (Lovenox) 40 mg SC DAILY JENNY Stop: 07/10/18 08:59 Last Admin: 01/11/18 09:44 Dose: 40 mg Midodrine (Proamatine) 2.5 mg PO TID JENNY Stop: 07/10/18 15:59 Last Admin: 01/11/18 15:49 Dose: Not Given Discontinued Medications Acetaminophen (Tylenol Rectal) 650 mg MA EDNOW ONE Stop: 01/10/18 21:05 Last Admin: 01/10/18 21:32 Dose: 650 mg Carbidopa/Levodopa (Sinemet) 2 tab PO TID ONE Stop: 01/10/18 21:20 Last Admin: 01/10/18 22:12 Dose: Not Given Sodium Chloride (Ns) 1,000 mls @ 0 mls/hr IV ONCE ONE; Wide Open PRN Reason: Protocol Stop: 01/10/18 21:20 Last Admin: 01/10/18 21:34 Dose: 1,000 mls Microbiology Results: MICROBIOLOGY 01/10/18 22:00 Urine,Clean Catch Urine Culture - Preliminary General Initial Vital Signs: Initial Vital Signs Temperature (C) 38.0 C 01/10/18 19:30 Heart Rate 128 H 01/10/18 19:30 Respiratory Rate 20 01/10/18 19:30 Blood Pressure 148/108 H 01/10/18 19:30 O2 Sat (%) 96 01/10/18 19:30 O2 Delivery Mode Room Air O2 (L/minute) 2 Allergies/Adverse Reactions: No Known Allergies Allergy (Verified 10/17/17 03:43) Home Medications: Medication Instructions Recorded Acetaminophen [Tylenol 325mg (*)] 650 mg PO Q4 PRN 01/11/18 Atropine 1% 2 drops PO QID PRN 01/11/18 Bisacodyl [Bisacodyl (*)] 10 mg PO DAILY PRN 01/11/18 Carbidopa/Levodopa 25/100Mg 2 tab PO QID 01/11/18 [Sinemet 25/100 MG (*)] Cholecalciferol Vit D3 [Vitamin D3 2,000 units PO DAILY 01/11/18 (*)] Docusate Sodium [Colace 100 MG (*)] 100 mg PO Q2D 01/11/18 Fludrocortisone Acetate [Florinef 0.1 mg PO BID 01/11/18 0.1 MG (RX)] Ibuprofen [Motrin (*)] 400 mg PO Q6H PRN 01/11/18 Midodrine HCl 2.5 mg PO TID 01/11/18 [place]-3 Fatty Acids [Fish Oil 1000 1,000 mg PO DAILY 01/11/18 mg (*)] Polyethylene Glycol 3350 [Miralax 17 gm PO DAILY 01/11/18 17 gm (*)] Rivastigmine [Exelon 4.6mg/24 1 each TD DAILY 01/11/18 hours] Sennosides/Docusate Sodium 1 each PO BID 01/11/18 [Senna-Docusate Sodium Tablet] Tamsulosin HCl [Flomax 0.4 MG (*)] 0.8 mg PO HS 01/11/18 guaiFENesin/DEXTROMETHORPHAN 10 ml PO Q6 PRN 01/11/18 [Robitussin Dm Oral Liquid (*)] levETIRAcetam [Keppra 250 mg (*)] 250 mg PO BID PRN 01/11/18 Departure - Departure Disposition: [facility] Clinical Impression: Parkinsons disease Altered mental status Qualifiers: Altered mental status type: somnolence Qualified Code(s): R40.0 - Somnolence Fever Qualifiers: Fever type: unspecified Qualified Code(s): R50.9 - Fever, unspecified Condition: Fair
--- NOTE | 2018-01-10 21:02 | CPEKG ---
Heart Rate: 100 RR Interval: 600 P-R Interval: 180 QRSD Interval: 84 QT Interval: 348 QTC Interval: 449 P [place]: 36 QRS [place]: 92 T Wave [place]: 55 EKG Severity - ABNORMAL ECG - EKG Impression: SINUS TACHYCARDIA EKG Impression: RIGHT AXIS DEVIATION EKG Impression: ABNRM R PROG, CONSIDER ASMI OR LEAD PLACEMENT EKG Impression: Artifact Electronically Signed By: Fran Sow 12-Jan-2018 09:00:57
[2018-01-10] MEDS ORDERED: ACETAMINOPHEN 650 MG SUPP PR ONE (21:04)
[2018-01-10] MEDS ORDERED: CARBIDOPA/LEVODOPA 25 MG/100 MG TAB PO ONE (21:19)
[2018-01-10] MEDS ORDERED: NS 1,000 ML IV ONE (21:19)
[2018-01-10] MEDS ORDERED: ACETAMINOPHEN 650 MG SUPP PR PRN (22:17)
[2018-01-10] MEDS ORDERED: PROMETHAZINE HCL 25 MG/ML INJ IVP PRN (22:17)
[2018-01-10] MEDS ORDERED: ONDANSETRON 4 MG/2 ML VIAL IVP PRN (22:17)
--- NOTE | 2018-01-10 22:23 | PDGENHP ---
History and Physical - Chief Complaint Acute encephalopathy - History of Present Illness Primary care provider: Dr. Slick Nichols Primary neurologist: Dr. Edwards at [facility] Primary palliative specialist: Dr. Matta at [facility] HPI: 67-year-old male presents with acute encephalopathy characterized as somnolence, confusion, inability to verbalize, after he was found [facility] by [facility] staff. Further history of the preceding events is completely unobtainable from the patient. Per patient's daughter, the last time that he was seen as baseline by her was 2 weeks prior. She reports that he had an associated nonproductive cough at that time, but they were able to mobilize him and take him for an outing for his birthday. Since that time, she has not received any phone calls for any issues. She does note that over the past month while she has been seeing him, he has reported some back pain, and this was evaluated by the patient's neurologist at [facility]. He was recently initiated on an Exelon patch. On the day of this presentation, she was contacted by the [facility] staff, indicating that they had found him down on his knees in his room, for unclear reasons. They reported that at the scene, his SpO2 of 75% on room air and his temperature was 38 degree C. He is otherwise unable to verbalize any symptoms. His symptoms persisted into the emergency department, and he currently denies any pain. History Information - Allergies/Home Medication List Allergies/Adverse Reactions: No Known Allergies Allergy (Verified 10/17/17 03:43) Home Medications: Carbidopa/Levodopa 25/100Mg [Sinemet 25/100 MG (*)] 2 tab PO QID 12/24/14 [Last Taken 08/17/15] Sennosides/Docusate Sodium [Senokot-S] 1 - 2 tab PO BID PRN 09/01/17 [Last Taken Unknown] Sennosides/Docusate Sodium [Senokot-S] 1 tab PO BID 09/01/17 [Last Taken Unknown ] I have personally reviewed and updated: family history, medical history, social history, surgical history - Past Medical History Additional medical history: Parkinson's disease with deep brain stimulator and dementia (baseline cognitive status is able to answer questions, recognize family members, unable to ambulate independently). Previous lumbar spine compression fracture. Urinary retention. Pulmonary embolism in 2015, Coumadin discontinued secondary to falls. Previous seizure, presumably secondary to Aricept - Surgical History Additional surgical history: Hip fracture repair. Deep brain stimulator - Family History Additional family history: Father with myocardial infarction in his 60s, no recent sick family contacts - Social History Smoking Status: Never smoked Alcohol Use: None Drug Use: None Additional social history: Completely dependent in his ADLs, resides permanently at [facility] Review of Systems Review of Systems: ROS: 10pt was reviewed & negative except for what was stated in HPI & below Constitutional: Reports: fever Respiratory: Reports: cough Neurological: Reports: other (Confusion, somnolence) Physical Exam Physical Exam: Temp Pulse Resp BP Pulse Ox 38.7 C H 100 24 H 149/108 H 92 01/10/18 21:35 01/10/18 21:35 01/10/18 21:35 01/10/18 21:35 01/10/18 21:35 Constitutional: no apparent distress, not in pain, chronically ill appearing, uncomfortable, cachectic Eyes: anicteric sclera, EOMI Ears, Nose, Mouth, Throat: other (Dry mucous membranes, no oral ulcerations) Cardiovascular: tachycardia, No systolic murmur, No irregularly irregular, No edema Respiratory: rhonchi, No reduced air movement, No expiratory wheeze, No bronchial breath sounds, No respiratory distress Gastrointestinal: No normoactive bowel sounds (Hyperactive bowel sounds), No tenderness, No guarding, No distension Skin: other (Skin tear right anterior patella with very minimal surrounding erythema, no abrasions or pressure injuries on his buttocks or back) Neurologic: other (Alert awake oriented times 0, spontaneously moving his extremities), No facial droop Psychiatric: not anxious, encephalopathic, poor insight, poor judgement, poor memory, other (Unable to follow any commands), No agitated Lab Data & Imaging Review 01/10/18 19:45 01/10/18 19:45 WBC 10.60 10^3/uL (3.80-9.50) H 01/10/18 19:45 RBC 4.89 10^6/uL (4.40-6.38) 01/10/18 19:45 Hgb 15.0 g/dL (13.7-17.5) 05/12/18 19:45 Hct 43.9 % (40.0-51.0) 01/10/18 19:45 MCV 89.8 fL (81.5-99.8) 01/10/18 19:45 MCH 30.7 pg (27.9-34.1) 01/10/18 19:45 MCHC 34.2 g/dL (32.4-36.7) 01/10/18 19:45 RDW 13.2 % (11.5-15.2) 01/10/18 19:45 Plt Count 216 10^3/uL (150-400) 01/10/18 19:45 MPV 9.3 fL (8.7-11.7) 01/10/18 19:45 Neut % (Auto) 86.0 % (39.3-74.2) H 01/10/18 19:45 Lymph % (Auto) 4.3 % (15.0-45.0) L 01/10/18 19:45 [place] % (Auto) 9.0 % (4.5-13.0) 01/10/18 19:45 Eos % (Auto) 0.0 % (0.6-7.6) L 01/10/18 19:45 Baso % (Auto) 0.3 % (0.3-1.7) 01/10/18 19:45 Nucleat RBC Rel Count 0.0 % (0.0-0.2) 01/10/18 19:45 Absolute Neuts (auto) 9.12 10^3/uL (1.70-6.50) H 01/10/18 19:45 Absolute Lymphs (auto) 0.46 10^3/uL (1.00-3.00) L 01/10/18 19:45 Absolute Monos (auto) 0.95 10^3/uL (0.30-0.80) H 01/10/18 19:45 Absolute Eos (auto) 0.00 10^3/uL (0.03-0.40) L 01/10/18 19:45 Absolute Basos (auto) 0.03 10^3/uL (0.02-0.10) 01/10/18 19:45 Absolute Nucleated RBC 0.00 10^3/uL (0-0.01) 01/10/18 19:45 Immature Gran % 0.4 % (0.0-1.1) 01/10/18 19:45 Immature Gran # 0.04 10^3/uL (0.00-0.10) 01/10/18 19:45 RBC/WBC/PLT Morphology TNP 01/10/18 19:45 Platelet Estimate TNP 01/10/18 19:45 PT 14.0 SEC (12.0-15.0) 01/10/18 19:45 INR 1.06 (0.83-1.16) 01/10/18 19:45 APTT 25.1 SEC (23.0-38.0) 01/10/18 19:45 D-Dimer 0.60 ug/mLFEU (0.00-0.50) H 01/10/18 19:45 VBG Lactic Acid 1.4 mmol/L (0.7-2.1) 01/10/18 19:45 Sodium 144 mEq/L (135-145) 01/10/18 19:45 Potassium 4.2 mEq/L (3.5-5.2) 01/10/18 19:45 Chloride 103 mEq/L (97-110) 01/10/18 19:45 Carbon Dioxide 27 mEq/l (22-31) 01/10/18 19:45 Anion Gap 14 mEq/L (8-16) 01/10/18 19:45 BUN 24 mg/dL (7-23) H 01/10/18 19:45 Creatinine 1.0 mg/dL (0.7-1.3) 01/10/18 19:45 Estimated GFR > 60 01/10/18 19:45 Glucose 120 mg/dL (70-100) H 01/10/18 19:45 Calcium 9.3 mg/dL (8.5-10.4) 01/10/18 19:45 Total Bilirubin 0.7 mg/dL (0.1-1.4) 01/10/18 19:45 Troponin I < 0.012 ng/mL (0.000-0.034) 01/10/18 19:45 Urine Color YELLOW 01/10/18 19:50 Urine Appearance CLEAR 01/10/18 19:50 Urine pH 5.0 (5.0-7.5) 01/10/18 19:50 Ur Specific [place] 1.012 (1.002-1.030) 01/10/18 19:50 Urine Protein NEGATIVE (NEGATIVE) 01/10/18 19:50 Urine Ketones NEGATIVE (NEGATIVE) 01/10/18 19:50 Urine Blood 3+ (NEGATIVE) H 01/10/18 19:50 Urine Nitrate NEGATIVE (NEGATIVE) 01/10/18 19:50 Urine Bilirubin NEGATIVE (NEGATIVE) 01/10/18 19:50 Urine Urobilinogen NEGATIVE EU (0.2-1.0) 01/10/18 19:50 Ur Leukocyte Esterase NEGATIVE (NEGATIVE) 01/10/18 19:50 Urine RBC 5-10 /hpf (0-3) H 01/10/18 19:50 Urine WBC NONE SEEN /hpf (0-3) 01/10/18 19:50 Ur Epithelial Cells NONE SEEN /lpf (NONE-1+) 01/10/18 19:50 Urine Mucus TRACE /lpf (NONE-1+) 01/10/18 19:50 Urine Glucose NEGATIVE (NEGATIVE) 01/10/18 19:50 Visualized and Interpreted Chest x-ray results: Yes Chest X-Ray results: no infiltrate, other (Hyperinflated, deep brain stimulator in place) Visualized and Interpreted EKG results: Yes EKG Interpretation: Positive for: other (Sinus tachycardia with ST elevation in lead V3) Assessment & Plan Assessment: 67-year-old male presents with acute on chronic encephalopathy in the setting of systemic inflammatory response syndrome Plan: 1. Acute on chronic encephalopathy. Evidenced by global brain dysfunction characterized as somnolence, confusion, poor responsiveness, inability to follow commands or verbally respond to questioning, all of which are acute changes from his baseline, which is normally able to follow commands, answer some simplistic questions, and recognize family members, these acute changes are most likely secondary to an infection -monitor patient closely, he is a high fall risk, communicated this to Dr. Pam Goins who has reported to me that she has shared this with the [facility], and we will have the patient placed close to nursing station for monitoring -discussed with daughter, help her understand that patient will most likely experience a protracted recovery once he receives adequate treatment for his underlying infection, secondary to his underlying Parkinson's disease -attempt to avoid sedating medications 2. Systemic inflammatory response syndrome. Acute, new problem this provider, further workup indicated. Tachycardic, febrile, suspect that there is underlying infection, but the exact location is still to be determined -urinalysis unremarkable, chest x-ray unremarkable, blood cultures have been sent -given his recent history of back pain and kyphoplasty in September, check ESR and CRP, and if these are substantially elevated, would recommend a back imaging with CT with IV contrast, given his deep brain stimulator -check respiratory viral panel -if patient has diarrhea, checks GI PCR -if he develops any abdominal symptoms, consider checking CT of the abdomen pelvis with IV contrast -check CPK, phosphorus, liver panel, TSH 3. History of seizure. Reviewed outside records including 09/04/2017 discharge summary by Sonali Clifford, she reports that the patient's Keppra was continued at time of discharge, but review of the patient's home medication she demonstrates no evidence of this medication -obtain outside records from his outpatient neurology office to determine whether there was an intentional discontinuation of Keppra -monitor for any evidence of seizure, I doubt that the patient's presentation is secondary to a postictal state as his serum bicarbonate level is not decreased and his serum lactic acid level is normal 4. History of pulmonary embolism. D-dimer negative when adjusted for age, patient was not hypoxic on presentation, with an SpO2 reportedly of 96% on room air -no indication for additional CT imaging of the chest at this time 5. Parkinson's disease. Chronic, currently takes Sinemet, currently holding secondary to encephalopathy and high risk of aspiration -reinitiate Sinemet after patient passes swallow eval Diet. NPO, [employer] eval in a.m., continue IV fluids Prophylaxis. High risk patient, Lovenox 40 Code. Full per patient's advance directive, his daughter is MD TODD Disposition. Anticipated discharge uncertain this time, anticipated length stay is greater than 48 hr for reasonable medical necessity including acute on chronic encephalopathy with high risk systemic inflammatory response syndrome requiring further workup as outlined above.
[2018-01-10 22:35] LABS: CREATINE KINASE 274 IU/L (0-224)
--- NOTE | 2018-01-11 00:17 | PDMN ---
Medical Necessity Medical necessity: C/M review: Patient meets INPT criteria under [facility] M-160 Sepsis and Other Febrile Illness, without Focal Infection: Acute on chronic encephalopathy - global brain dysfunction characterized as somnolence, confusion , poor responsiveness, inability to follow commands or verbally respond to questioning, all of which are acute changes from patient's baseline which is normally able to follow commands, answer some simplistic questions, and recognize family members, acute changes are most likely secondary to an infection - exact location is still being determined, acute new high risk systemic inflammatory response syndrome, 38.7 degrees C Temp. max, Heart rate 128-100, WBC 10.60, Creatine kinase 274, C-reactive protein 20.5, BUN 24 requiring planned Case Management consult, blood and urine cultures pending, ongoing NPO, IV NS 150 ml/hr., acute inpt PT/OT/ST, comorbid patient found down on his knees on the floor at his shelter with 75% RA sat, Temp. 38 degrees C just prior to this admission, recent history of kyphoplasty in September 2017, history of seizure, pulmonary embolism, chronic Parkinson's disease, high risk of aspiration, deep brain stimulator and dementia. anticipates > 2 MN LOS for ongoing med nec for eval and TX of above. Patient is Medicare Advantage which follows guidelines CMS puts forth.
[2018-01-11 04:52] LABS: PLATELET COUNT 170 10^3/uL (150-400)
[2018-01-11] MEDS: ENOXAPARIN 40 MG/0.4 ML SYR SC SCH (09:44)
--- NOTE | 2018-01-11 10:38 | ASMTCMCOM ---
CM Note CM Note Notes: 01/11/2018 Case Management Note Reviewed chart. Pt admitted with acute encepalopathy after being found down in his [place] [facility] room. Pt has history of parkinson's. Daughter Dejah Dailey [phone] is MDPOA. Pt resides at [facility]. Faxed updates via [employer] to [facility]. Left VM with admissions at [facility] notifying of admission. Pt d/c needs are unclear at this time, awaiting PT or OT evals. Case Management d/c poc: return to [facility] Case Management to follow. Date Signed: 01/11/2018 10:38 AM Electronically Signed By:Yvonne Gan RN
--- NOTE | 2018-01-11 10:52 | HOSPPROG ---
Hospitalist Progress Note Assessment/Plan: * Human metapneumovirus -supportive care -still febrile, but hold antibiotics pending culture as suspect viral * Metabolic encephalopathy -NPO pending swallow eval and mental status improvement * Advanced Parkinson's with deep brain stimulator -clarify Sinemet dose * Advanced dementia * h/o PE - off warfarin for h/o falls * Lumbar compression fracture Subjective: Difficult to arouse Objective: Vital Signs Temp Pulse Resp BP Pulse Ox 36.8 C 76 16 144/97 H 98 01/11/18 08:00 01/11/18 08:00 01/11/18 08:00 01/11/18 08:00 01/11/18 08:00 Microbiology 01/11/18 00:59 Respiratory Panel (PCR) - Final Nasal, Sinus - Swab Human Metapneumovirus Detected Laboratory Results 01/11/18 04:30 01/11/18 04:30 01/10/18 01/11/18 01/12/18 05:59 05:59 05:59 Intake Total 1500 Balance 1500 PT 14.0 SEC (12.0-15.0) 01/10/18 19:45 INR 1.06 (0.83-1.16) 01/10/18 19:45 EKG viewed, my personal interpretation is - NSR, parkinson's tremor Heat Ct - negative, deep brain stimulator in place - Physical Exam Constitutional: no apparent distress, chronically ill appearing, cachectic, other (somnolent) Eyes: PERRL Cardiovascular: regular rate and rhythym, no murmur, rub, or gallop Respiratory: no respiratory distress, no rales or rhonchi, clear to auscultation Gastrointestinal: normoactive bowel sounds, soft, non-tender abdomen, no palpable masses Skin: no rashes or abrasions, no fluctuance, no induration Neurologic: No AAOx3 Psychiatric: encephalopathic, flat affect, poor insight, No interacting appropriately, No agitated ICD10 Worksheet Patient Problems: Problems Problem Status Onset Parkinsons disease Acute Compression fracture of L2 Acute Gait instability Acute Impaction of colon Acute New onset seizure Acute Pulmonary embolism Acute
--- NOTE | 2018-01-11 14:22 | ASMTCMCOM ---
HILARIA Note CM Note Notes: HILARIA spoke with Narinder from [facility]. She wanted to inform us that there are a few cases of the human metapneumovirus at and one other is hospitalized here at [facility]. She said they are willing to accept pt back when he is medically cleared for d/c. Pt is being provided supportive care for the virus. Current d/c plan will be to return to [facility]. CM will continue to follow. Date Signed: 01/11/2018 02:21 PM Electronically Signed By:SHERIN Sanders
[2018-01-11] MEDS ORDERED: ATROPINE 1% 5 ML OPHT.BTL SL PRN (15:08)
[2018-01-11] MEDS ORDERED: IBUPROFEN 200 MG TAB PO PRN (15:08)
[2018-01-11] MEDS: CARBIDOPA/LEVODOPA 25 MG/100 MG TAB PO SCH ×2 (15:46→20:44)
[2018-01-11] MEDS: MIDODRINE HCL 5 MG TAB PO SCH ×2 (15:49→21:36)
[2018-01-11] MEDS: NS 1,000 ML IV SCH (20:24)
[2018-01-11] MEDS: SENNOSIDES/DOCUSATE SODIUM TAB PO SCH (20:44)
[2018-01-11] MEDS: FLUDROCORTISONE ACETATE 0.1 MG TAB PO SCH (20:44)
[2018-01-11] MEDS ORDERED: TAMSULOSIN HCL 0.4 MG CAP PO SCH (21:00)
[2018-01-12] MEDS: NS 1,000 ML IV SCH (03:19)
[2018-01-12] MEDS: CARBIDOPA/LEVODOPA 25 MG/100 MG TAB PO SCH ×2 (05:01→11:50)
[2018-01-12] MEDS: ENOXAPARIN 40 MG/0.4 ML SYR SC SCH (08:48)
[2018-01-12] MEDS: SENNOSIDES/DOCUSATE SODIUM TAB PO SCH (08:48)
[2018-01-12] MEDS: MIDODRINE HCL 5 MG TAB PO SCH (08:49)
[2018-01-12] MEDS: FLUDROCORTISONE ACETATE 0.1 MG TAB PO SCH (08:49)
[2018-01-12] MEDS ORDERED: RIVASTIGMINE TD SCH (09:00)
[2018-01-12] MEDS ORDERED: POLYETHYLENE GLYCOL 3350 17 GM PKT PO SCH (09:00)
[2018-01-12 11:23] VITALS: BP 106/76
--- NOTE | 2018-01-12 14:16 | PDIAF ---
- Diagnosis Diagnosis: Human metapneumovirus Code Status: Full Code - Medication Management Discharge Medications: Medications to Continue on Transfer Acetaminophen [Tylenol 325mg (*)] 650 mg PO Q4 PRN 01/11/18 [Last Taken Unknown] Atropine 1% 2 drops PO QID PRN 01/11/18 [Last Taken Unknown] Bisacodyl [Bisacodyl (*)] 10 mg PO DAILY PRN 01/11/18 [Last Taken Unknown] Carbidopa/Levodopa 25/100Mg [Sinemet 25/100 MG (*)] 2 tab PO QID 01/11/18 [Last Taken 01/10/18 16:00] Cholecalciferol Vit D3 [Vitamin D3 (*)] 2,000 units PO DAILY 01/11/18 [Last Taken 01/10/18] Docusate Sodium [Colace 100 MG (*)] 100 mg PO Q2D 01/11/18 [Last Taken 01/09/18] Fludrocortisone Acetate [Florinef] 0.1 mg PO BID 01/11/18 [Last Taken 01/09/18] Ibuprofen [Motrin (*)] 400 mg PO Q6H PRN 01/11/18 [Last Taken Unknown] Midodrine HCl 2.5 mg PO TID 01/11/18 [Last Taken 01/09/18] [place]-3 Fatty Acids [Fish Oil 1000 mg (*)] 1,000 mg PO DAILY 01/11/18 [Last Taken 01/10/18] Polyethylene Glycol 3350 [Miralax 17 gm (*)] 17 gm PO DAILY 01/11/18 [Last Taken 01/10/18] Rivastigmine [Exelon 4.6mg/24 hours] 1 each TD DAILY 01/11/18 [Last Taken ] Sennosides/Docusate Sodium [Senna-Docusate Sodium Tablet] 1 each PO BID [Last Taken 01/10/18 08:00] Tamsulosin HCl [Flomax 0.4 MG (*)] 0.8 mg PO HS 01/11/18 [Last Taken 01/10/18] guaiFENesin/DEXTROMETHORPHAN [Robitussin Dm Oral Liquid (*)] 10 ml PO Q6 PRN [Last Taken Unknown] levETIRAcetam [Keppra 250 mg (*)] 250 mg PO BID PRN 01/11/18 [Last Taken Unknown ] Discharge Medications: Refer to the Discharge Home Medication list for PRN reason. - Orders Isolation Type: Contact Isolation, Droplet Isolation Diet Recommendation: no restrictions on diet - Follow Up Care Current Providers and Referrals: NONE *PRIMARY CARE P,. [Primary Care Provider] - As per Instructions
--- NOTE | 2018-01-12 14:44 | GDS ---
[f rep st] DISCHARGE SUMMARY DISCHARGE DIAGNOSES: 1. Human metapneumovirus with fever. 2. Metabolic encephalopathy. 3. Advanced Parkinson's with deep brain stimulator. 4. Advanced dementia. 5. History of pulmonary embolus. 6. Lumbar compression fracture. HISTORY: The patient is an unfortunate 67-year-old male with advanced Parkinson disease. Lives at [facility]. Presented to the hospital with worsening mental status, fever and transient hypoxia. His respiratory PCR came back for human metapneumovirus. His bacterial cultures were all negative. Thi s was thought to be all viral. He was treated supportively. He has improved, is back to room air an d now afebrile. His mental status was too poor to take orally when he first arrived but he since wok en up enough and has passed a swallow evaluation and is back to an oral diet. DISCHARGE MEDICATIONS: Please see computerized record for full detailed list. There are no new medi cation changes given at time of hospital discharge. DISCHARGE INSTRUCTIONS: Discharge to [facility]. Greater than 30 minutes' time spent arranging this discharge. Patient seen and examined by me on the day of discharge. /[id number]/MODL
[2018-01-13] MEDS ORDERED: DOCUSATE SODIUM 100 MG CAP PO SCH (09:00)
--- NOTE | 2018-01-14 13:42 | ASDISCHSUM ---
Discharge Information Plan Status:SNF Medically Cleared to Leave:01/12/2018 Discharge Date:01/12/2018 04:16 PM CM D/C Disposition: ADT D/C Disposition:Fpc Facility Projected Discharge Date:01/12/2018 11:00 AM Transportation at D/C: Discharge Delay Reason: Follow-Up Date:01/12/2018 11:00 AM Discharge Slot: Final Diagnosis: Placement Information Referral Type:*Mcfp/SNF Referral ID:[id number] Provider Name:[facility] Address 1:[address] Address 2: City:[place] Selection Factors: State:[place] Patient Contact Information Contact Name:BIANKA Relationship:Daughter Address: Home Phone: City:[place] Alternate Phone: State/Zip Code:[place] Email: Financial Information Financial Class:Medicare Advantage Plans Primary Plan Desc:[facility] [employer] Primary Plan Number:[id number] Secondary Plan Desc:[employer] Secondary Plan Number:[id number] Assessment Information [facility] CM Progress Note CM Note CM Note Notes: 01/11/2018 Case Management Note Reviewed chart. Pt admitted with acute encepalopathy after being found down in his alf room. Pt has history of parkinson's. Daughter Dejah Dailey [phone] is [facility]. Pt resides at [facility]. Faxed updates via [place] to [facility]. Left VM with admissions at [facility] notifying of admission. Pt d/c needs are unclear at this time, awaiting PT or OT vonda. Case Management d/c poc: return to [facility] Case Management to follow. Date Signed: 01/11/2018 10:38 AM Electronically Signed By:Yvonne Gan RN [facility] CM Progress Note CM Note CM Note Notes: CM spoke with Narinder from [facility]. She wanted to inform us that there are a few cases of the human metapneumovirus at and one other is hospitalized here at [facility]. She said they are willing to accept pt back when he is medically cleared for d/c. Pt is being provided supportive care for the virus. Current d/c plan will be to return to [facility]. CM will continue to follow. Date Signed: 01/11/2018 02:21 PM Electronically Signed By:SHERIN Sanders Case Management Discharge Plan Note Case Management Discharge Discharge Order Complete? Answers: Yes Patient to Obtain Answers: Other Notes: [facility] Medications Transportation Arranged Answers: [facility] will Pick (Date 01/12/2018 12:00 AM & Time) Case Management Transport Answers: Yes Notes: [facility] Form Complete Faxed Final Orders Answers: Yes Notes: [facility] Agency/Facility Transfer Answers: Yes Notes: [facility] Report Printed & Faxed to Receiving Agency Family Notified Answers: Yes Notes: [facility] Discharge Comments Notes: Patient to discharge back to [facility] today. Patient had human metapneumovirus and is on contact isolation. Melida at [facility] approved him returning on contact and droplet isolation. All discharge summaries faxed to [facility]. Transport set up with [facility] at 4:15 or 16:15. Nurse given report line number. No further needs. Date Signed: 01/12/2018 03:53 PM Electronically Signed By:Bianca Mayberry LCSW Intervention Information
== END 2018-01-12 16:16 | DRG 71 ==
LOC: EDUNIT# → OBSVTOIN 22:10 → F3E 22:55
PROVIDERS: ADMIT Internal Medicine; ATTEND Internal Medicine
DX: G93.41 Metabolic encephalopathy (principal); M48.56XA Collapsed vertebra, not elsewhere classified, lumbar region, initial encounter for fracture; B97.81 Human metapneumovirus as the cause of diseases classified elsewhere; G20 Parkinson's disease; F03.90 Unspecified dementia, unspecified severity, without behavioral disturbance, psychotic disturbance, mood disturbance, and anxiety; G40.909 Epilepsy, unspecified, not intractable, without status epilepticus; Z86.711 Personal history of pulmonary embolism
CPT/HCPCS: 92523-GN; 97162-GP; 97166-GO; G8978-GP-CL; G8979-GP-CJ; G8987-GO-CM; G8988-GO-CK; G9165-GN-CK; G9166-GN-CK; J1650

== ENCOUNTER 2018-12-28 18:21 | Emergency (ER) | payer OTHER, MEDICAID ==
--- NOTE | 2018-12-28 18:48 | EDPHY ---
H & P Stated Complaint: R wrist deformity s/p mechanical fall at SNF Source: RN/MD, alf records Exam Limitations: Clinical condition - Personal History Current Tetanus/Diphtheria Vaccine: Unsure Current Tetanus Diphtheria and Acellular Pertussis (TDAP): Unsure Tetanus Vaccine Date: <10yrs - Medical/Surgical History Hx Asthma: No Hx Chronic Respiratory Disease: No Hx Diabetes: No Hx Cardiac Disease: No Hx Renal Disease: No Hx Cirrhosis: No Hx Alcoholism: No Hx HIV/AIDS: No Hx Splenectomy or Spleen Trauma: No Other PMH: pmh- parkinsons, multiple falls, C-spine disk herniation and canal stenosis, psh- DBS, deep brain stimulator (2004), hip surgery, PE,bph, hypotension, dementia - Social History Smoking Status: Never smoked Time Seen by Provider: 12/28/18 18:41 HPI/ROS: HPI: This is an 87-year-old male who presents with Chief Complaint: Right wrist deformity after fall at [facility] Location: Right wrist Quality: Injury/deformity Duration: Prior to arrival Signs and Symptoms: No bleeding, no radiation, no numbness, no weakness, no tingling, no incontinence, + decreased range of motion, + swelling, + pain, no fever Timing: Acute Severity: Moderate Context: Patient arrives via EMS, with witnessed fall on right outstretched hand prior to arrival. Noted obvious deformity on the radial aspect with decreased range of motion. Patient is right-hand dominant. Does not take any blood thinners as history of Parkinson's, balance deficits, fall history, deep brain stimulator. Patient has dementia and is a poor historian. Per the nurse at the [facility] this was a witnessed fall and he did not hit his head. Patient has no complaints to me at this time. Daughter at bedside reports that he was diagnosed with Parkinson's disease 20 years ago and has been at [facility] for the last 3 years. He has had significant decline over the last 3 years and only recognizes her "at times." His room is directly across from the nurse's station due to his history of getting out of bed when he is not supposed to and frequent fall history. Denies any other pain or injury to me. Modifying Factors: Ice pack applied Comment: ROS: A comprehensive 10 system review of systems is otherwise negative aside from elements mentioned in the history of present illness. MEDICAL/SURGICAL/SOCIAL HISTORY: Medical history: Parkinson, multiple falls, C-spine disk herniation and canal stenosis, psh- DBS, deep brain stimulator (2004), hip surgery, PE, bph, hypotension, dementia Social history: Disabled. Lives in [facility] facility. CONSTITUTIONAL: Elderly, nontoxic-appearing adult white male, awake and alert, no obvious distress HEENT: Atraumatic and normocephalic, PERRL, EOMI. Nares patent; no rhinorrhea; no nasal mucosal edema. Tympanic membranes clear. Oropharynx clear, no exudate and moist pink mucosa. Airway patent. No lymphadenopathy. No meningismus. Cardiovascular: Normal S1/S2, regular rate, regular rhythm, without murmur rub or gallop. PULMONARY/CHEST: Symmetrical and nontender. Clear to auscultation bilaterally. Good air movement. No accessory muscle usage. ABDOMEN: Soft, nondistended, nontender, no rebound, no guarding, no peritoneal signs, no masses or organomegaly. No CVAT. EXTREMITIES: 2/2 radial pulses, oracle specialist strength 4/5, right WRIST: Deformity noted over the radial aspect and held in 10 flexion with ecchymosis. Moderate tenderness over radial styloid, no pain with Haritha test, no pain with Phalen test, no pain with Tinel test no deformities, no clubbing, no cyanosis or edema. NEUROLOGICAL: no focal neuro deficits. Alert and oriented to self, place, date of . Follows simple commands. SKIN: Warm and dry, no erythema. no rash. Good capillary refill. (Margot Mcfarlane) Constitutional: Initial Vital Signs Temperature (C) 36.9 C 12/28/18 18:31 Heart Rate 61 12/28/18 18:31 Respiratory Rate 16 12/28/18 18:31 Blood Pressure 119/74 12/28/18 18:31 O2 Sat (%) 97 12/28/18 18:31 O2 Delivery Mode Room Air Allergies/Adverse Reactions: No Known Allergies Allergy (Verified 10/17/17 03:43) Home Medications: Medication Instructions Recorded Acetaminophen [Tylenol 325mg (*)] 650 mg PO Q4 PRN 01/11/18 Atropine 1% 2 drops PO QID PRN 01/11/18 Bisacodyl [Bisacodyl (*)] 10 mg PO DAILY PRN 01/11/18 Carbidopa/Levodopa 25/100Mg 2 tab PO QID 01/11/18 [Sinemet 25/100 MG (*)] Cholecalciferol Vit D3 [Vitamin D3 2,000 units PO DAILY 01/11/18 (*)] Docusate Sodium [Colace 100 MG (*)] 100 mg PO Q2D 01/11/18 Fludrocortisone Acetate [Florinef] 0.1 mg PO BID 01/11/18 Ibuprofen [Motrin (*)] 400 mg PO Q6H PRN 01/11/18 Midodrine HCl 2.5 mg PO TID 01/11/18 [place]-3 Fatty Acids [Fish Oil 1000 1,000 mg PO DAILY 01/11/18 mg (*)] Polyethylene Glycol 3350 [Miralax 17 gm PO DAILY 01/11/18 17 gm (*)] Rivastigmine [Exelon 4.6mg/24 1 each TD DAILY 01/11/18 hours] Sennosides/Docusate Sodium 1 each PO BID 01/11/18 [Senna-Docusate Sodium Tablet] Tamsulosin HCl [Flomax 0.4 MG (*)] 0.8 mg PO HS 01/11/18 guaiFENesin/DEXTROMETHORPHAN 10 ml PO Q6 PRN 01/11/18 [Robitussin Dm Oral Liquid (*)] levETIRAcetam [Keppra 250 mg (*)] 250 mg PO BID PRN 01/11/18 oxyCODONE/APAP 5/325 [Percocet 1 - 2 tab PO Q4H PRN #10 tab 12/28/18 5/325 (*)] Medical Decision Making Procedures: Procedure: Reduction. Intra-articular wrist block performed using 6 mL of 1% lidocaine without epinephrine in the usual sterile fashion. The displacement of the right radius was reduced using counter traction technique without complications. Post reduction the patient's neurovascular exam is normal. The procedure was performed by myself. Procedure: Splint placement. A right sugar-tong Ortho Glass splint was applied. After application of the splint I returned and re-examined the patient. The splint was adequately immobilizing the joint and distal to the splint the patient's circulation and sensation was intact. (Margot Mcfarlane) ED Course/Re-evaluation: Vital signs reviewed and stable upon arrival. Witnessed fall that is mechanical in nature secondary to chronic balance deficits to Parkinson's disease Not on any blood thinners and based on nexus protocol no indication for head CT imaging Given Percocet. Right elbow x-ray and right wrist x-ray ordered and my read at bedside shows distal radial neck fracture with minimal displacement, possible ulnar styloid closed fracture, no elbow fracture, no elbow dislocation. Placed in Ortho Glass sugar-tong splint, sling, orthopedic follow-up Given prepack for Percocet prescription for same. Patient is already a fall risk and is at the nursing station at the [facility]. No signs of neurovascular compromise/tenting of skin/compartment syndrome/ extremities and joints examined above and below area of concern and are neurovascularly intact. This patient was seen under the supervision of my secondary supervising physician. I evaluated and cared for this patient independently. (Margot Mcfarlane) Differential Diagnosis: Differential diagnosis includes but is not limited to radial fracture, ulnar fracture, scaphoid fracture, metacarpal fracture, elbow fracture. (Margot Mcfarlane) Other Provider: The patient was evaluated and managed by the Physician Manager [employer]. My co- signature indicates that I have reviewed this chart and I agree with the findings and plan of care as documented. I am the secondary supervising physician. (Pam Goins) - Data Points Medications Given: Discontinued Medications Oxycodone/Acetaminophen (Percocet 5/325) 1 tab PO EDNOW ONE Stop: 12/28/18 18:51 Last Admin: 12/28/18 18:52 Dose: 1 tab Oxycodone/Acetaminophen (Percocet 5/325mg Prepack#4) 1 btl TAKEHOME EDNOW ONE Stop: 12/28/18 19:17 Last Admin: 12/28/18 19:30 Dose: 1 btl Departure - Departure Disposition: Home, Routine, Self-Care Clinical Impression: Closed fracture of right distal radius, Closed fracture of styloid process of right ulna Condition: Good Instructions: Oxycodone/Acetaminophen (By mouth), Wrist Fracture in Adults (ED) , How to Use a Sling (ED), Splint Care (ED), ORIF of a Wrist Fracture (DC) Additional Instructions: Keep the splint dry and in place until seen by orthopedic. Wear the sling while out of bed as needed for comfort. Use wheelchair to ambulate until seen by Orthopedics. Recommend fall precautions. Take Tylenol 650 mg every 4 hours and/or Ibuprofen 600 mg every 8 hours with food as needed for pain. Use Percocet every 6 hours as needed for severe/break through pain. Do not use Tylenol and Percocet concomitantly. Apply ice for 30 minutes at a time; 2-3 times per day for the next 1-2 days. Follow up with Orthopedics in 5-7 days at which time they will evaluate and recommend with you if conservative management versus surgery is indicated. Return to the ER immediately if you experience new or worsening pain, discoloration, numbness, tingling, or any other symptoms that concern you. Follow-Up: Please follow-up as noted above. Follow-up sooner if your condition worsens or if you develop any new problems. Call as soon as possible for an appointment. Be clear when you call for an appointment that this is an Emergency Department follow-up. Contact the Emergency Department if you have trouble arranging follow-up care. Our referrals are not based on your insurance network. When time allows, contact your insurance carrier to verify the referral physician is in your plan. If not, get a referral for an in-network desktop support specialist. Referrals: Patient,NotPresent [Unknown] - As per Instructions Calin Pérez MD [Medical Doctor] - As per Instructions Prescriptions: oxyCODONE/APAP 5/325 [Percocet 5/325 (*)] 1 - 2 tab PO Q4H PRN #10 tab PRN Reason: Pain, Severe
[2018-12-28] MEDS ORDERED: OXYCODONE/APAP 5/325 TAB PO ONE (18:50)
[2018-12-28] MEDS ORDERED: OXYCODONE/APAP 5/325MG PREPACK#4 BTL TAKEHOME ONE (19:16)
[2018-12-28 20:31] VITALS: BP 122/74
== END 2018-12-28 20:31 | disposition home or self-care (01) ==
LOC: EDUNIT#
PROC: 0PSHXZZ Reposition Right Radius, External Approach (ICD-10-PCS; principal; 2018-12-28)
DX: S52.591A Other fractures of lower end of right radius, initial encounter for closed fracture (principal); S52.611A Displaced fracture of right ulna styloid process, initial encounter for closed fracture; W19.XXXA Unspecified fall, initial encounter; Y92.129 Unspecified place in nursing home as the place of occurrence of the external cause
CPT/HCPCS: 25605; 73080; 73110; 99283; A4565

== ENCOUNTER → 2019-01-06 | Outpatient (CLI) | payer OTHER, MEDICAID | LOC: BMCIMAGING 11:01 | PROVIDERS: ATTEND Orthopaedic Surgery Hand Surgery | DX: S69.91XD Unspecified injury of right wrist, hand and finger(s), subsequent encounter (principal) ==

== ENCOUNTER → 2019-01-19 | Outpatient (CLI) | payer OTHER, MEDICAID | LOC: BMCIMAGING 17:03 | PROVIDERS: ATTEND Orthopaedic Surgery Hand Surgery | DX: S52.501D Unspecified fracture of the lower end of right radius, subsequent encounter for closed fracture with routine healing (principal) ==

== ENCOUNTER → 2019-02-15 | Outpatient (CLI) | payer OTHER, MEDICAID | LOC: BMCIMAGING 09:39 ==